=== PATIENT | female | born 1955 | race Caucasian/White ===

== ENCOUNTER 2019-03-23 18:56 | Inpatient (IN) | payer MEDICARE, BC ==
[~2019-03-23] VITALS: Ht 170.2 cm; Wt 100.0 kg
[2019-03-23 19:02] VITALS: Ht 170.2 cm; Wt 100.0 kg
--- NOTE | 2019-03-23 19:11 | ERD ---
ER Documentation Chief Complaint Chief Complaint bib ra from board and care for cp, given asa 324, and 2 nitro, HPI 64-year-old female brought in from her board and care via ambulance for chest pain that started around 1700. She was given 2 nitros, aspirin, and placed on oxygen with resolution of her pain. She states that she was having pain in her left chest that was sharp, intermittent, and this was going on for several hours . She did have associated shortness of breath. She denies vomiting or having any diaphoresis. Currently she feels much better and denies any chest pain. She denies any history of heart attacks. No recent fevers or chills. No cough. ROS All systems reviewed and are negative except as per history of present illness. Allergies Allergies: Coded Allergies: No Known Allergy (Unverified , 03/23/19) PMhx/Soc History of Surgery: Yes (Surgery for tubal ) Hx Neurological Disorder: Yes (Stroke with left-sided deficits) Hx Respiratory Disorders: Yes (COPD) Hx Cardiac Disorders: Yes (Hypertension) Hx Alcohol Use: No Hx Substance Use: No (History of drug use) Hx Tobacco Use: No (Quit) FmHx Family History: No diabetes Physical Exam Vitals Vital Signs Date Temp Pulse Resp B/P (MAP) Pulse Ox O2 O2 Flow FiO2 Time Delivery Rate 03/23/19 67 20 129/100 100 Nasal 2.0 19:17 (110) Cannula 03/23/19 Nasal 2 19:14 Cannula 03/23/19 98.7 65 19 129/102 100 19:02 (111) Physical Exam Const: No acute distress Head: Atraumatic Eyes: Normal Conjunctiva ENT: Normal External Ears, Nose and Mouth. Neck: Full range of motion. No meningismus. Resp: Clear to auscultation bilaterally Cardio: Regular rate and rhythm, no murmurs Abd: Soft, non tender, non distended. Normal bowel sounds Skin: No petechiae or rashes Back: No midline or flank tenderness Ext: No cyanosis, or edema Neur: Awake and alert Psych: Normal Mood and Affect Result Diagram: 03/23/19192203/23/191922 Results 24 hrs Laboratory Tests Test 03/23/19 19:23 White Blood Count 6.7 10^3/ul Red Blood Count 4.21 10^6/ul Hemoglobin 13.2 g/dl Hematocrit 41.7 % Mean Corpuscular Volume 99.0 fl Mean Corpuscular Hemoglobin 31.4 pg Mean Corpuscular Hemoglobin Concent 31.7 g/dl Red Cell Distribution Width 13.3 % Platelet Count 190 10^3/UL Mean Platelet Volume 9.1 fl Immature Granulocytes % 0.300 % Neutrophils % 57.5 % Lymphocytes % 30.4 % Monocytes % 8.3 % Eosinophils % 3.1 % Basophils % 0.4 % Nucleated Red Blood Cells % 0.0 /100WBC Immature Granulocytes # 0.020 10^3/ul Neutrophils # 3.9 10^3/ul Lymphocytes # 2.1 10^3/ul Monocytes # 0.6 10^3/ul Eosinophils # 0.2 10^3/ul Basophils # 0.0 10^3/ul Nucleated Red Blood Cells # 0.0 10^3/ul Sodium Level 142 mmol/L Potassium Level 5.3 mmol/L Chloride Level 103 mmol/L Carbon Dioxide Level 29 mmol/L Anion Gap 10 Blood Urea Nitrogen 62 mg/dl Creatinine 1.67 mg/dl Est Glomerular Filtrat Rate mL/min 31 mL/min Glucose Level 116 mg/dl Calcium Level 9.8 mg/dl Troponin I < 0.012 ng/ml Current Medications Medications Dose Sig/Teressa Start Time Status Last (Trade) Ordered Route PRN Stop Time Admin Dose Reason Admin Morphine 2 mg ONCE STAT 03/23/19 DC 03/23/19 Sulfate IV 22:52 23:00 (morphine) 03/23/19 22:56 Sodium 1,000 ml @ [id number] IV 03/23/19 DC 03/24/19 Chloride 80 mls/hr 22:52 00:55 03/24/19 01:03 Procedures/MDM EMERGENT LABS AND DIAGNOSTIC STUDIES: Lab Results above were reviewed and interpreted by me. CBC: no anemia or evidence of infection BMP: Elevation of BUN and creatinine, concerning for renal insufficiency with borderline hyperkalemia. no e/o clinically significant acidosis, alkalosis, diabetic ketoacidosis Troponin within normal limits, not indicative of cardiac ischemia 12-lead EKG #1 was interpreted by Amy Villagomez MD: Normal Sinus Rhythm with ventricular rate of 64 beats per minute Normal axis Normal intervals Diffuse minimal upsloping ST elevations, consistent with benign early repolarization. No acute ST or T wave changes suggestive of acute ischemia or STEMI. 12-lead EKG #2 was interpreted by Amy Villagomez MD: Normal Sinus Rhythm with ventricular rate of 61 beats per minute Normal axis Normal intervals Diffuse minimal upsloping ST elevations, consistent with benign early repolarization. No acute ST or T wave changes suggestive of acute ischemia or STEMI. Radiology Results as interpreted by Radiology below were reviewed by Payam Villagomez MD: Chest x-ray: No acute abnormalities Initial Nursing notes reviewed. Previous Medical Records requested via the Electronic Health Record. EMERGENCY DEPARTMENT COURSE / MEDICAL DECISION MAKING: Patients symptoms are concerning for a cardiac etiology. Other etiologies considered were PE, aortic dissection, pneumonia, pneumothorax, esophageal rupture. EKG showed no acute ischemia. Initial troponin negative. CXR grossly unremarkable. However patient has an intermediate risk of adverse events. Plan to admit for further evaluation. Further workup will be deferred to the inpatien t team. Accepting Care Team: Current data and ongoing care discussed. Time: Time of admission Primary Provider: Dr. Singh Consulting: Outstanding Data: none Departure Diagnosis: Primary Impression: Chest pain Chest pain type: unspecified Qualified Codes: R07.9 - Chest pain, unspecified Additional Impression: Renal insufficiency Condition: TA Gonzalez MD March 23, 2019 19:11
[2019-03-23] MEDS ORDERED: SOD CHLORIDE 0.9% 1,000 ML IV SCH (22:52)
[2019-03-23] MEDS ORDERED: morphine 2 MG INJ IV STA (22:52)
[2019-03-23] MEDS ORDERED: morphine 2 MG INJ ONE (22:57)
[2019-03-23] MEDS ORDERED: ACETAMINOPHEN 325 MG TAB PO PRN ×2 (23:00)
[2019-03-23] MEDS ORDERED: ONDANSETRON 4 MG INJ IV PRN (23:00)
[2019-03-23] MEDS ORDERED: NACL 0.9% 3 ML SYG IV SCH (23:00)
[2019-03-23] MEDS ORDERED: MIDAZOLAM 1 MG/ML 2 ML INJ IV STA (23:04)
[2019-03-23] MEDS ORDERED: FENTAnyl 50 MCG/ML VIAL IV STA (23:04)
[2019-03-23] MEDS ORDERED: MIDAZOLAM (DRIP) 50 mg/50 mL 50 ML IV ONE (23:30)
[2019-03-23] MEDS ORDERED: FENTAnyl (DRIP) 1000 mcg/100mL 100 ML IV ONE (23:30)
[2019-03-24] VITALS (11 sets, daily range): BP systolic 65–158; BP diastolic 56–86; PULSE 55–83; RESP 17–20
--- NOTE | 2019-03-24 01:00 | HP ---
Date/Time of Note Date/Time of Note DATE: 03/24/19 TIME: 00:59 Assessment/Plan VTE Prophylaxis SCD applied (from Nsg): Yes Pharmacological prophylaxis: NA/contraindicated Pharm contraindication: low risk/ambulating Lines/Catheters IV Catheter Type (from Nrsg): Saline Lock Assessment/Plan Hospital Course This is a 64-year-old female being admitted to the telemetry floor for: #1 chest pain: Rule out ACS versus secondary to CHF. Trend cardiac enzymes x3, the first that was negative. EKG appears nonischemic. Morphine/nitro for pain. Will check hemoglobin A1c, lipid panel, TSH. Will consult cardiology. Will check an echocardiogram. #2 Suspect newly diagnosed acute CHF exacerbation: Patient denies any history of heart failure. Patient does have an elevated BNP of approximately 1500. She does have pulmonary congestion on lung exam. Will provide Lasix 40 mg IV daily. Monitor urine output. Will check an echocardiogram. Delay initiation of NIK at the current time given patient's ANKIT. #3 acute versus acute on chronic kidney injury: Did not have a previous baseline creatinine. At present time patient does appear to volume overload. Will provide patient with IV diuresis with Lasix. Will consult nephrology Dr. Carlson. Will check microscopic UA, urinalysis. calcium is 5.3. Will monitor. #4 Hypertension: We will need to confirm patient's home medications, the cur rent time PRN hydralazine #5 history of CVA: With chronic facial droop and left-sided weakness. Will check lipid panel, will need to confirm patient's home medications. Otherwise will need to initiate on aspirin/statin if no contraindication. #6 COPD: We will check a baseline ABG, PRN nebs #7 DVT and GI prophylaxis: SCDs, no GI prophylaxis indicated Further treatment strategy will be implemented as per the clinical course. Result Diagram: 03/23/19192203/23/191922 Results 24hrs Laboratory Tests Test 03/23/19 19:23 White Blood Count 6.7 Red Blood Count 4.21 Hemoglobin 13.2 Hematocrit 41.7 Mean Corpuscular Volume 99.0 Mean Corpuscular Hemoglobin 31.4 Mean Corpuscular Hemoglobin Concent 31.7 L Red Cell Distribution Width 13.3 Platelet Count 190 Mean Platelet Volume 9.1 Immature Granulocytes % 0.300 Neutrophils % 57.5 Lymphocytes % 30.4 Monocytes % 8.3 Eosinophils % 3.1 Basophils % 0.4 Nucleated Red Blood Cells % 0.0 Immature Granulocytes # 0.020 Neutrophils # 3.9 Lymphocytes # 2.1 Monocytes # 0.6 Eosinophils # 0.2 Basophils # 0.0 Nucleated Red Blood Cells # 0.0 Sodium Level 142 Potassium Level 5.3 H Chloride Level 103 Carbon Dioxide Level 29 Anion Gap 10 Blood Urea Nitrogen 62 H Creatinine 1.67 H Est Glomerular Filtrat Rate mL/min 31 L Glucose Level 116 Calcium Level 9.8 Troponin I < 0.012 HPI/ROS Admit Date/Time Admit Date/Time March 23, 2019 at 22:54 Hx of Present Illness Chief complaint: Brought in from boarding care via ambulance for chest pain 64-year-old female brought in from her board and care via ambulance for chest pain that started around 1700. She was given 2 nitros, aspirin, and placed on oxygen with resolution of her pain. She states that she was having pain in her left chest that was sharp, intermittent, and this was going on for several hours. She did have associated shortness of breath. She denies vomiting or having any diaphoresis. She has a history of a stroke and has chronic left-sided weakness as well as facial droop. She does report shortness of breath. Allergies: NKDA Medications: See ASIF AUGSUT Const: As per HPI Eyes : No pain discharge or redness or change in visual acuity ENT: No pain, sore throat, congestion, congestion, dysphagia or discharge Respiratory: As per HPI Cardiovascular: As per HPI GI : no change in appetite, abdominal pain, nausea, vomiting, diarrhea, constipation, or change in the color his stool Genitourinary: No dysuria, hematuria, flank pain , discharge or CVA tenderness Musculoskeletal: No joint pain, back pain, neck pain, restricted range of motion in neck or joints Skin: No rash, bruising or hives Neuro: No headache, dizziness, syncope, seizure, focal weakness Endocrine: No polyuria, polydipsia, temperature intolerance Psych: No hallucination, depression, anxiety or suicidal ideation PMH/Family/Social Past Medical History CVA with left sided weakness, facial droop, copd, htn, Medications Current Medications Sodium Chloride 1,000 ml @ 80 mls/hr [id number] IV Last administered on 03/24/19at 00:55; Admin Dose 80 MLS/HR; Start 03/23/19 at 22:52; Stop 03/24/19 at 11:21 IV Flush (NS 3 ml) 3 ml PER PROTOCOL IV ; Start 03/23/19 at 23:00 Ondansetron HCl (Zofran Inj) 4 mg Q6H PRN IV NAUSEA/VOMITING; Start 03/23/19 at 23:00 Nitroglycerin (Nitroglycerin (Sl Tab) 0.4 Mg) 1 tab Q5M PRN SL .CHEST PAIN; Start 03/23/19 at 23:00 Acetaminophen (Tylenol Tab) 650 mg Q6H PRN PO .PAIN 1-3 OR TEMP; Start 03/23/19 at 23:00 Morphine Sulfate (morphine) 2 mg Q4H PRN IV .PAIN 7-10; Start 03/23/19 at 23:00 Docusate Sodium (Colace) 100 mg Q12H PRN PO .CONSTIPATION; Start 03/23/19 at 23:00 Bisacodyl (Dulcolax) 5 mg DAILY PRN PO .CONSTIPATION; Start 03/23/19 at 23:00 Coded Allergies: No Known Allergy (Unverified , 03/23/19) Past Surgical History tubal ligation Family History Significant Family History: no pertinent family hx Social History hx of drug use Smoking Status: Former smoker Exam/Review of Systems Vital Signs Vitals Vital Signs Date Temp Pulse Resp B/P (MAP) Pulse Ox O2 O2 Flow FiO2 Time Delivery Rate 03/24/19 61 22 130/59 100 Nasal 00:08 (82) Cannula 03/23/19 2.0 23:30 03/23/19 98.7 19:02 Exam Exam General: Patient is currently lying in bed in no acute distress, she does have left facial droop which is chronic. HEENT: Atraumatic, normocephalic. The pupils are equal, round and reactive. Extraocular motor are intact, left facial droop chronic Neck: Supple with full range of motion. No rigidity or meningismus Chest: Nontender Lungs: Coarse breath sounds bilaterally, rales crackles Heart: Normal S1-S2, Regular rhythm and rate. Questionable JVD Abdomen: Soft , nontender, nondistended , bowel sounds are present. No guarding no rebound tenderness , No masses or organomegaly. No costovertebral temporal angle mass Extremities: Normal to inspection, no edema no cyanosis Neurologic: Alert and awake, speech slightly muffled, left facial droop(chronic), left-sided weakness(chronic) Additional Comments PROCEDURE: Chest. CLINICAL INDICATION: Chest pain. TECHNIQUE: Single frontal view of the chest was obtained. COMPARISON: None. FINDINGS: The cardiac silhouette is enlarged. The aortic arch is calcified. There is mild pulmonary venous congestion. There are right upper lobe and left basilar infiltrates. There is no pneumothorax. IMPRESSION: Mild cardiomegaly and pulmonary venous congestion. Right upper lobe and left basilar infiltrates. Aortic atherosclerosis. .Danish Josue MD, MD Date Time Electronically viewed and signed by .Danish Josue MD, MD on 03/23/2019 19:48 .T/ CC: TA SCHULZ MD [phone] EKG Normal Sinus Rhythm with ventricular rate of 61 beats per minute Normal axis Normal intervals Diffuse minimal upsloping ST elevations, consistent with benign early repolarization. No acute ST or T wave changes suggestive of acute ischemia or STEMI. LAUREL HERRERA March 24, 2019 01:00
[2019-03-24] MEDS ORDERED: FUROSEMIDE 40 MG INJ IV ONE (01:30)
[2019-03-24] MEDS ORDERED: hydrALAzine 20 MG INJ IV PRN (09:00)
[2019-03-24] MEDS ORDERED: ALBUTEROL 0.083% (NEB) 2.5 MG/3 ML AMP HHN PRN (09:00)
[2019-03-24] MEDS: FUROSEMIDE 40 MG INJ IV SCH (09:32)
--- NOTE | 2019-03-24 15:07 | CONS ---
DATE OF ADMISSION: 03/23/2019 DATE OF CONSULTATION: 03/24/2019 TYPE OF CONSULTATION: Nephrology. REASON FOR CONSULTATION: Acute kidney injury. PHYSICIAN REQUESTING CONSULT: Dr. Herrera. HISTORY OF PRESENT ILLNESS: This is a 64-year-old female with a past medical history of CVA, a histo ry of COPD, history of hypertension who presents to [facility] Emergency Room with chest pain. The patient states her symptoms started on the previous evening when she started having chest pain. The patient was given 2 nitros, aspirin in the Emergency Room with improvement of pain. The patient is just described the pain from the left side of chest, sharp, intermittent. There was no nausea, vomiting, no hemoptysis, no hematochezia. In terms of patient's renal history, the patient denies any prior history of acute kidney injury. Th e patient denies any prior history of CKD. She denies rashes. She denies any frothy urine. Please note the patient is a limited historian. PAST MEDICAL HISTORY: History of chronic obstructive pulmonary disease, hypertension, history of CVA . PAST SURGICAL HISTORY: Tubal ligation. ALLERGIES: NONE. FAMILY HISTORY: No family history of kidney disease. SOCIAL HISTORY: Former smoker. OUTPATIENT MEDICATIONS: Reviewed. REVIEW OF SYSTEMS: A 14-point review of systems was conducted. Pertinent positives stated in HPI, o therwise negative. PHYSICAL EXAMINATION: VITAL SIGNS: Blood pressure 133/86, respiration 18, pulse 79, temperature 97.4. HEENT: Head is normocephalic. NECK: Supple. HEART: Regular rate. LUNGS: Show diminished breath sounds at the base. ABDOMEN: Soft, nontender to palpation without rebound or guarding. EXTREMITIES: Negative for clubbing, cyanosis. Trace edema. DERMATOLOGIC: No rashes. MUSCULOSKELETAL: No joint effusions. NEUROLOGIC: No change in exam. LABORATORY DATA: From 03/24/2019 been reviewed. ABG was reviewed. Chest x-ray was reviewed. ASSESSMENT AND PLAN: This is a 64-year-old female who presents with: 1. Renal failure, possible nonoliguric acute kidney injury versus chronic kidney disease. Other pos sibilities include nonoliguric acute kidney injury on top of chronic kidney disease. The patient's b aseline renal function unknown. Plan at this point is to do a full evaluation. Check UA with microa nalysis, check urine electrolytes and check a renal ultrasound to evaluate renal parenchyma. Would o therwise continue current treatment plan, supportive care, renally dose all meds, monitor renal funct ion closely on diuretic therapy. We will also try to obtain patient's previous renal panels to ascer tain underlying baseline creatinine. 2. Anemia. We will monitor hemoglobin and hematocrit levels. 3. Mineral bone disorder, monitor calcium and phosphorus levels. 4. Volume overload. Etiology may be secondary to congestive heart failure, possibly new onset. The patient has noted elevated BNP. Chest x-ray does show congestion. The patient was given diuretic t herapy, monitor closely. Follow up 2D echo. 5. Hypertension. Continue blood pressure regimen. Defer any NIK inhibitor or ARB in the setting of possible acute kidney injury. 6. History of cerebrovascular accident with left-sided weakness. Continue medical management. 7. Chronic obstructive pulmonary disease. Continue current treatment plan. 8. Gastrointestinal and deep vein thrombosis prophylaxis. Thank you, Dr. Herrera, for this interesting consult. It will be a pleasure to follow patient with gwendolyn corbett throughout the hospital course. Dictated By: BLAIR OVIEDO DO NR/NTS Conf#: [id number] DID#: [id number] CC: LAUREL HERRERA MD;*EndCC*
--- NOTE | 2019-03-24 17:20 | RADRPT ---
Echocardiogram Report Patient Name: MILDRED JACOBSONPatient ID: [id number] : 1955 (64y 1m)Study Date: 03/24/2019 9:05:43 AM Gender: FAccession #: [id number] Tech: Ernst Olmedo [facility] Location: [facility]- Ref.Physician: LAUREL HERRERA Height(Cm): BSA: Weight(Kg): Quality: AdequateOrder Physician: LAUREL HERRERA Account #: Procedures: Echocardiographic Report: Transthoracic echocardiogram with complete 2D, M-Mode, and doppler examination. Indications: Chest Pain. Measurements: 2D/M Mode Doppler Measurement Value Normal Range Measurement Value Normal Range LVIDd 2D 4.5 [ 3.8 - 5.2 ] cm AV Peak Jonel 1.6 [ 100.0 - 170.0 ] cm/sec LVIDs 2D 2.8 [ 2.2 - 3.5 ] cm AV Peak PG 11.0 [ 2.0 - 9.0 ] mmHg LVPWd 2D 1.7 [ 0.6 - 0.9 ] cm LVOT Peak Jonel 1.4 [ 70.0 - 110.0 ] cm/sec IVSd 2D 1.7 [ 0.6 - 0.9 ] cm LVOT Peak PG 8.0 [ 2.0 - 6.0 ] mmHg AoR Diam 2D 2.2 [ 2.3 - 3.1 ] cm MV E Peak Jonel 1.1 [ 60.0 - 130.0 ] cm/sec EDV 2D 90.5 [ 46.0 - 106.0 ] ml MV A Peak Jonel 0.8 [ 100.0 - 120.0 ] cm/sec ESV 2D 30.3 [ 14.0 - 42.0 ] ml MV E/A 1.4 [ 0.8 - 1.5 ] ratio EF 2D 66.5 [ 54.0 - 74.0 ] percent MV Decel Time 187 [ 104 - 258 ] msec LA Dimen 2D 3.6 [ 2.7 - 3.8 ] cm Lat E` Jonel 0.0 [ 10.0 - 15.0 ] cm/sec Lateral E/E` 25.3 [ 1.0 - 2.0 ] ratio MV E/A 1.4 [ 0.8 - 1.5 ] ratio TR Peak Jonel 2.7 [ 100.0 - 280.0 ] cm/sec TR Peak PG 30.0 mmHg RVSP 40.0 [ 10.0 - 36.0 ] mmHg Findings: Left Ventricle: Normal left ventricular systolic function. Normal left ventricular cavity size. Moderate concentric left ventricular hypertrophy. Ejection fraction is visually estimated at 65 %. Tissue Doppler/Mitral Doppler indices are consistent with impaired relaxation (Stage I diastolic dysfunction). Right Ventricle: Normal right ventricular size. Normal right ventricular systolic function. Left Atrium: The left atrium is normal in size. Right Atrium: The right atrium is normal in size. Mitral Valve: Mild mitral leaflet calcification. Mild mitral annular calcification. Mild to moderate mitral valve regurgitation. The regurgitation jet is eccentrically directed which may underestimate the severity of mitral regurgitation. Aortic Valve: No hemodynamically significant aortic stenosis by doppler. Aortic cusps appear mildly calcified. Mild to moderate aortic valve regurgitation. Tricuspid Valve: Normal appearance of the tricuspid valve. Estimated peak PA systolic pressure 40 mmHg. There is mild tricuspid regurgitation. Pericardium: Trivial to small pericardial effusion. Left pleural effusion seen. Aorta: Normal aortic root. IVC: Normal size and normal respiratory collapse consistent with normal right atrial pressure. Conclusions: Normal left ventricular systolic function. Normal left ventricular cavity size. Moderate concentric left ventricular hypertrophy. Ejection fraction is visually estimated at 65 %. Tissue Doppler/Mitral Doppler indices are consistent with impaired relaxation (Stage I diastolic dysfunction). The left atrium is normal in size. Mild mitral leaflet calcification. Mild mitral annular calcification. Mild to moderate mitral valve regurgitation. The regurgitation jet is eccentrically directed which may underestimate the severity of mitral regurgitation. No hemodynamically significant aortic stenosis by doppler. Aortic cusps appear mildly calcified. Mild to moderate aortic valve regurgitation. Normal appearance of the tricuspid valve. Estimated peak PA systolic pressure 40 mmHg. There is mild tricuspid regurgitation. Trivial to small pericardial effusion. Left pleural effusion seen. Electronically Signed By: Wiley Givens 2019-03-24 17:19:18 PDT
[2019-03-24] MEDS: morphine 2 MG INJ IV PRN ×2 (17:57→22:26)
[2019-03-24] MEDS: NITROGLYCERIN (SL) 0.4 MG TAB SL PRN ×2 (20:03→20:14)
--- NOTE | 2019-03-24 20:06 | CONS ---
Assessment/Plan Assessment/Plan Hospital Course (Demo Recall) 1. Chest pain appears to be reproducible and musculoskeletal in nature 2. History of CVA 3. Acute renal insufficiency 4. Hypertension 5. Rule out dyslipidemia 6. Small pericardial effusion 7. Aortic insufficiency Recommendation: Follow-up with renal recommendation We will start the patient aspirin given her history of CVA. Check lipid panel in the morning and if LDL is more than 70 he is to be started on statins as well Continue blood pressure control Troponin have been negative. We will repeat again tomorrow Pain management as per internal medicine Thank you for this referral. We will continue to follow along with you YANELIS BURTON MD [facility] Consultation Date/Type/Reason Admit Date/Time March 23, 2019 at 22:54 Date of Consultation: March 24, 2019 Type of Consult Cardiology Reason for Consultation CP Requesting Provider: LAUREL HERRERA Date/Time of Note DATE: 03/24/19 TIME: 20:01 Hx of Present Illness Interventional cardiology consultation note Chief complaint: Chest pain Reason for consult: Chest pain History of present illness: Thank you for this referral. History was from the patient review of the chart review of the old chart. This is a pleasant 64-year-old female with a past medical history of CVA, a history of COPD, history of hypertension who presents to [facility] Emergency Room with chest pain. The pain is left-sided. Intermittent on and off no exacerbation treatment factor but appears to be getting worse with touch. It is sharp and severe at times. Is poking. PAST MEDICAL HISTORY: History of chronic obstructive pulmonary disease, hypertension, history of CVA. PAST SURGICAL HISTORY: Tubal ligation. ALLERGIES: NONE. FAMILY HISTORY: No family history of early coronary artery disease SOCIAL HISTORY: Former smoker. Medications she does not remember Review of system: Patient denies all others except for above-mentioned Past Medical History Medications Current Medications IV Flush (NS 3 ml) 3 ml PER PROTOCOL IV ; Start 03/23/19 at 23:00 Ondansetron HCl (Zofran Inj) 4 mg Q6H PRN IV NAUSEA/VOMITING; Start 03/23/19 at 23:00 Nitroglycerin (Nitroglycerin (Sl Tab) 0.4 Mg) 1 tab Q5M PRN SL .CHEST PAIN; Start 03/23/19 at 23:00 Acetaminophen (Tylenol Tab) 650 mg Q6H PRN PO .PAIN 1-3 OR TEMP; Start 03/23/19 at 23:00 Morphine Sulfate (morphine) 2 mg Q4H PRN IV .PAIN 7-10 Last administered on 03/24/19at 17:57; Admin Dose 2 MG; Start 03/23/19 at 23:00 Docusate Sodium (Colace) 100 mg Q12H PRN PO .CONSTIPATION; Start 03/23/19 at 23:00 Bisacodyl (Dulcolax) 5 mg DAILY PRN PO .CONSTIPATION; Start 03/23/19 at 23:00 Furosemide (Lasix) 40 mg DAILY IV Last administered on 03/24/19at 09:32; Admin Dose 40 MG; Start 03/24/19 at 09:00 Hydralazine HCl (Apresoline) 10 mg Q4H PRN IV ELEVATED BLOOD PRESSURE; Start 03/24/19 at 09:00 Albuterol (Proventil 0.083% (Neb)) 2.5 mg Q4H RESP THERAPY PRN HHN SHORTNESS OF BREATH; Start 03/24/19 at 09:00 Allergies: Coded Allergies: No Known Allergy (Unverified , 03/23/19) Social History Smoking Status: Former smoker Exam/Review of Systems Vital Signs Vitals Vital Signs Date Temp Pulse Resp B/P (MAP) Pulse Ox O2 O2 Flow FiO2 Time Delivery Rate 03/24/19 73 16:01 03/24/19 97.8 17 141/65 93 15:07 (90) 03/24/19 Nasal 2.0 09:36 Cannula Intake and Output 03/23/19 03/23/19 03/24/19 1515:00 23:00 07:00 IntakeIntake Total 300 ml BalanceBalance 300 ml Exam Exam General: Obese female in no acute distress HEENT: NC/AT. Left eye ptosis NECK: no stridor. CV: RRR. systolic and diastolic murmur; no gallop or rubs. PULM: no wheezing or rhonchi. Chest: Positive reproducible chest wall tenderness on the left side, mimicking her presenting pain GI: SOFT, NT, ND, no rebound or guarding Extremity: trace B/L LE edema. no clubbing. neuro: awake and alert, o. Left-sided weakness Psych: calm and pleasant rectal: deferred : normal EKG shows sinus rhythm with early repolarization abnormalities Echocardiogram shows: Normal left ventricular systolic function. Normal left ventricular cavity size. Moderate concentric left ventricular hypertrophy. Ejection fraction is visually estimated at 65 %. Tissue Doppler/Mitral Doppler indices are consistent with impaired relaxation (Stage I diastolic dysfunction). The left atrium is normal in size. Mild mitral leaflet calcification. Mild mitral annular calcification. Mild to moderate mitral valve regurgitation. The regurgitation jet is eccentrically directed which may underestimate the severity of mitral regurgitation. No hemodynamically significant aortic stenosis by doppler. Aortic cusps appear mildly calcified. Mild to moderate aortic valve regurgitation. Normal appearance of the tricuspid valve. Estimated peak PA systolic pressure 40 mmHg. There is mild tricuspid regurgitation. Trivial to small pericardial effusion. Left pleural effusion seen. Labs Result Diagram: 03/24/19 0422 03/24/19 0422 Results 24hrs Laboratory Tests Test 03/24/19 01:37 03/24/19 04:22 03/24/19 07:55 03/24/19 08:30 Creatine Kinase 23 < 20 L Creatine Kinase 1.9 Index Creatinine 0.43 0.39 Kinase MB (Mass) Troponin I < 0.012 < 0.012 B-Type 1530 H Natriuretic Peptide White Blood 6.3 Count Red Blood Count 3.68 L Hemoglobin 11.7 L Hematocrit 36.5 L Mean Corpuscular 99.2 Volume Mean Corpuscular 31.8 Hemoglobin Mean Corpuscular 32.1 Hemoglobin Lorraine nt Red Cell 13.4 Distribution Width Platelet Count 178 Mean Platelet 9.1 Volume Immature 0.300 Granulocytes % Neutrophils % 53.1 Lymphocytes % 30.3 Monocytes % 12.7 H Eosinophils % 3.3 Basophils % 0.3 Nucleated Red 0.0 Blood Cells % Immature 0.020 Granulocytes # Neutrophils # 3.4 Lymphocytes # 1.9 Monocytes # 0.8 Eosinophils # 0.2 Basophils # 0.0 Nucleated Red 0.0 Blood Cells # Sodium Level 143 Potassium Level 5.0 Chloride Level 106 Carbon Dioxide 29 Level Anion Gap 8 Blood Urea 60 H Nitrogen Creatinine 1.57 H Est Glomerular 33 L Filtrat Rate mL/min Glucose Level 100 Hemoglobin A1c 5.4 Calcium Level 9.2 Magnesium Level 2.2 Total Bilirubin 0.3 Direct Bilirubin 0.00 Indirect 0.3 Bilirubin Aspartate Amino < 8 L Transf (AST/SGOT ) Alanine 11 L Aminotransferase (ALT/SGPT) Alkaline 97 Phosphatase Total Protein 6.9 Albumin 3.4 Globulin 3.50 H Albumin/Globulin 0.97 Ratio Thyroid 2.360 Stimulating Hormone (TSH) Blood Gas Blood arterial Specimen Source Arterial Blood 03/24/2019 12:00 Date Drawn :54 PM Arterial Blood 7.402 pH (Temp corrected) Arterial Blood 47.7 H pCO2 (Temp correct) Arterial Blood 62.2 L pO2 (Temp corrected) Arterial Blood 29.0 H HCO3 Arterial Blood 3.5 H Base Excess Arterial Blood 91.2 L Oxygen Saturatio n Evan Test ACCEPTAB Arterial Blood Right Radial Gas Puncture Site Arterial 0.4 Blood Carboxyhem oglobin Arterial Blood 0.1 Methemoglobin Blood Gas A-a O2 30.4 H Differential Oxyhemoglobin 90.7 L Percent Blood Gas 37.0 Temperature Blood Gas ROOM AIR Modality FiO2 21.0 Blood Gas CW Notified Whom Blood Gas 03/24/2019 12:08 Notified Time :46 PM Test 03/24/19 13:49 Urine Color STRAW Urine Clarity SLIGHTLY CLOUDY A Urine pH 5.0 Urine Specific 1.010 [place] Urine Ketones NEGATIVE Urine Nitrite NEGATIVE Urine Bilirubin NEGATIVE Urine NEGATIVE Urobilinogen Urine Leukocyte 2+ H Esterase Urine 6 H Microscopic RBC Urine 78 H Microscopic WBC Urine Squamous FEW Epithelial Cells Urine Bacteria FEW A Urine Hemoglobin NEGATIVE Urine Random 45.43 Creatinine Urine Random 110 H Sodium Urine Glucose NEGATIVE Urine Total 58.0 H Protein Medications Medications Current Medications IV Flush (NS 3 ml) 3 ml PER PROTOCOL IV ; Start 03/23/19 at 23:00 Ondansetron HCl (Zofran Inj) 4 mg Q6H PRN IV NAUSEA/VOMITING; Start 03/23/19 at 23:00 Nitroglycerin (Nitroglycerin (Sl Tab) 0.4 Mg) 1 tab Q5M PRN SL .CHEST PAIN; Start 03/23/19 at 23:00 Acetaminophen (Tylenol Tab) 650 mg Q6H PRN PO .PAIN 1-3 OR TEMP; Start 03/23/19 at 23:00 Morphine Sulfate (morphine) 2 mg Q4H PRN IV .PAIN 7-10 Last administered on 03/24/19at 17:57; Admin Dose 2 MG; Start 03/23/19 at 23:00 Docusate Sodium (Colace) 100 mg Q12H PRN PO .CONSTIPATION; Start 03/23/19 at 23:00 Bisacodyl (Dulcolax) 5 mg DAILY PRN PO .CONSTIPATION; Start 03/23/19 at 23:00 Furosemide (Lasix) 40 mg DAILY IV Last administered on 03/24/19at 09:32; Admin Dose 40 MG; Start 03/24/19 at 09:00 Hydralazine HCl (Apresoline) 10 mg Q4H PRN IV ELEVATED BLOOD PRESSURE; Start 03/24/19 at 09:00 Albuterol (Proventil 0.083% (Neb)) 2.5 mg Q4H RESP THERAPY PRN HHN SHORTNESS OF BREATH; Start 03/24/19 at 09:00 YANELIS BURTON MD March 24, 2019 20:06
[2019-03-24] MEDS: ASPIRIN (EC) 81 MG TAB PO SCH (21:00)
[2019-03-25] VITALS (11 sets, daily range): BP systolic 127–159; BP diastolic 63–72; PULSE 59–82; RESP 16–20
[2019-03-25] MEDS: morphine 2 MG INJ IV PRN ×3 (03:17→20:39)
[2019-03-25] MEDS: ASPIRIN (EC) 81 MG TAB PO SCH (08:04)
[2019-03-25] MEDS: FUROSEMIDE 40 MG INJ IV SCH (08:05)
--- NOTE | 2019-03-25 09:26 | PN ---
DATE: 03/25/2019 SUBJECTIVE: The patient is stable, no events overnight. No fevers, chills, nausea or vomiting. OBJECTIVE: VITAL SIGNS: Blood pressure is 134/63, respirations 17, pulse 59, temperature 97.6. HEENT: Head is normocephalic. NECK: Supple. HEART: Regular rate. LUNGS: Show diminished breath sounds at the base. ABDOMEN: Soft, nontender to palpation without rebound or guarding. EXTREMITIES: Negative for clubbing, cyanosis, no edema. DERMATOLOGIC: No rashes. MUSCULOSKELETAL: No joint effusion. NEUROLOGIC: No change in exam. MEDICATIONS: Reviewed. LABORATORY DATA: Reviewed. IMAGING STUDIES: Renal ultrasound was reviewed. ASSESSMENT AND PLAN: 1. Nonoliguric acute kidney injury on top of chronic kidney disease with history of left nephrectomy . Etiology of current acute kidney injury is likely secondary to hemodynamics. The patient's baseli ne creatinine is unknown. Renal function has continued to decline in the last 24 hours. At this poi nt, continue current treatment plan, supportive care, renally dose all medications. We will consider deescalating diuretic therapy. 2. Chronic kidney disease with history of left nephrectomy. The patient's baseline renal function i s unknown. The patient is currently in acute kidney injury as stated above. Continue current treatm ent plan, supportive care, renally dose all medications. 3. Anemia. Continue to monitor hemoglobin and hematocrit levels. 4. Mineral bone disorder, monitor calcium and phosphorus levels. 5. Volume overload, improved. The patient's 2D echo was reviewed, showed preserved ejection fractio n. Continue to monitor. We will deescalate diuretic therapy. 6. Hypertension. Continue current blood pressure regimen. Defer any NIK or ARB at this time. 7. History of cerebrovascular accident with left-sided hemiparesis. Continue medical management. 8. History of chronic obstructive pulmonary disease. Continue current treatment plan. 9. Gastrointestinal and deep vein thrombosis prophylaxis. Dictated By: BLAIR OVIEDO DO NR/NTS Conf#: [id number] DID#: [id number] CC: YANELIS BURTON MD; LAUREL HERRERA MD; EDWARD SCHNEIDER MD;*EndCC*
--- NOTE | 2019-03-25 10:38 | EN ---
Date/Time of Note Date/Time of Note DATE: 03/24/19 TIME: 14:27 Event Note Medicine Medicine Event Note PROGRESS NOTE DATE OF SERVICE: 03/24/19 SUBJECTIVE: no new complaints, when asked about chest pain, states she's till having it OBJECTIVE: 97.4 / 79 / 18 / 133/86 / 98% on 2L General: lethargic, obese, was being cleaned HEENT: NC/ AT. L eye ptosis Neck: supple CVS: S1, S2, RRR. no murmurs. pain on chest wall palpation Lungs: diminished Abd: soft, obese, nontender, +BS Ext: L sided weakness LABS AND IMAGING: reviewed Echo : pending ASSESSMENT / PLAN: 64 yo F sent for SNF for evaluation of CP managed as follows : #1 chest pain: - ACS ruled out, seeems more LORETA in origin, may also be 2.2 to CHF. -f/u echo findings -cardio also consulted, await review -supportive care #2 Possible CHF exacerbation: -continue diuresis, f/u echo -wean O2 as tolerated #3 acute versus acute on chronic kidney injury: -Nephro review and recs noted, appreciate input -UA still pending -trend labs #4 Hypertension: -good control at current time, adjust meds and titrate as indicated #5 history of CVA: With chronic facial droop and left-sided weakness. -asa / statin #6 COPD:Patient has a history of this condition. No acute issues so far on this admission. 7. Possible PNA: CXR suggestive of bilateral infiltrates, Pna vs CHF? -consider abx EDWARD SCHNEIDER March 25, 2019 10:38
--- NOTE | 2019-03-25 10:39 | PN ---
Date/Time of Note Date/Time of Note DATE: 03/25/19 TIME: 10:38 Assessment/Plan VTE Prophylaxis Risk score (from Ns)>0 risk: 6 SCD applied (from Ns): Yes Pharmacological prophylaxis: heparin Lines/Catheters IV Catheter Type (from Nrs): Saline Lock Urinary Cath still in place: No Assessment/Plan Hospital Course SUBJECTIVE: doesn't seem to be in any discomfort, no new complaints OBJECTIVE: HEENT: NC/ AT. L eye ptosis, facial droop Neck: supple CVS: S1, S2, RRR. no murmurs. pain on chest wall palpation Lungs: diminished Abd: soft, obese, nontender, +BS Ext: left sided weakness ASSESSMENT / PLAN: 64 yo F sent for SNF for evaluation of CP managed as follows : Chest pain: - likely LORETA, ACS ruled out / supportive care and pain control CHF exacerbation: -Acute / new diagnosis / diastolic with preserved EF 65% -echo also shows Mild to Moderate mitral and aortic valve regurgitation / trivial pericardial effusion / Normal LV function Bilateral Pneumonia -?aspiration / ST eval / empiric abx / blood cultures UTI: -send urine cultures -empiric abx acute versus acute on chronic kidney injury + hx of L Nephrectomy: -Nephro review and recs noted, appreciate input -Cr went up today, baseline still unclear / diuretics have been de-escalated Hypertension: -good control at current time, adjust meds and titrate as indicated 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 -asa / statin Dyslipidemia -statin COPD:Patient has a history of this condition. No acute issues so far on this admission. Dispo: -continue to observe inhouse for now -f/u final cultures -follow renal function -possible d/c back to SNF tomorrow on abx if indices improve Result Diagram: 03/25/19 0508 03/25/19 0508 Results 24hrs Laboratory Tests Test 03/24/19 13:49 03/25/19 05:08 Urine Color STRAW Urine Clarity SLIGHTLY CLOUDY A Urine pH 5.0 Urine Specific [place] 1.010 Urine Ketones NEGATIVE Urine Nitrite NEGATIVE Urine Bilirubin NEGATIVE Urine Urobilinogen NEGATIVE Urine Leukocyte Esterase 2+ H Urine Microscopic RBC 6 H Urine Microscopic WBC 78 H Urine Squamous Epithelial Cells FEW Urine Bacteria FEW A Urine Hemoglobin NEGATIVE Urine Random Creatinine 45.43 Urine Random Sodium 110 H Urine Glucose NEGATIVE Urine Total Protein 58.0 H White Blood Count 6.1 Red Blood Count 3.66 L Hemoglobin 11.5 L Hematocrit 36.2 L Mean Corpuscular Volume 98.9 Mean Corpuscular Hemoglobin 31.4 Mean Corpuscular Hemoglobin Concent 31.8 L Red Cell Distribution Width 13.3 Platelet Count 190 Mean Platelet Volume 9.2 Immature Granulocytes % 0.200 Neutrophils % 53.6 Lymphocytes % 32.8 Monocytes % 10.5 Eosinophils % 2.6 Basophils % 0.3 Nucleated Red Blood Cells % 0.0 Immature Granulocytes # 0.010 Neutrophils # 3.3 Lymphocytes # 2.0 Monocytes # 0.6 Eosinophils # 0.2 Basophils # 0.0 Nucleated Red Blood Cells # 0.0 Sodium Level 142 Potassium Level 4.7 Chloride Level 104 Carbon Dioxide Level 29 Anion Gap 9 Blood Urea Nitrogen 61 H Creatinine 1.73 H Est Glomerular Filtrat Rate mL/min 30 L Glucose Level 98 Calcium Level 8.7 Phosphorus Level 5.3 H Magnesium Level 2.1 Total Bilirubin 0.3 Direct Bilirubin 0.00 Indirect Bilirubin 0.3 Aspartate Amino Transf (AST/SGOT) < 8 L Alanine Aminotransferase (ALT/SGPT) 13 Alkaline Phosphatase 107 B-Type Natriuretic Peptide 850 H Total Protein 7.3 Albumin 3.5 Globulin 3.80 H Albumin/Globulin Ratio 0.92 Triglycerides Level 338 H Cholesterol Level 204 H LDL Cholesterol, Calculated 97 HDL Cholesterol 39 Cholesterol/HDL Ratio 5.2 Exam/Review of Systems Exam Vitals Vital Signs Date Temp Pulse Resp B/P (MAP) Pulse Ox O2 O2 Flow FiO2 Time Delivery Rate 03/25/19 Nasal 2.0 08:10 Cannula 03/25/19 78 08:01 03/25/19 97.6 17 134/63 95 07:17 (86) Intake and Output 03/24/19 03/24/19 03/25/19 1515:00 23:00 07:00 IntakeIntake Total 1100 ml 500 ml BalanceBalance 1100 ml 500 ml Results Results 24hrs Laboratory Tests Test 03/24/19 13:49 03/25/19 05:08 Urine Color STRAW Urine Clarity SLIGHTLY CLOUDY A Urine pH 5.0 Urine Specific [place] 1.010 Urine Ketones NEGATIVE Urine Nitrite NEGATIVE Urine Bilirubin NEGATIVE Urine Urobilinogen NEGATIVE Urine Leukocyte Esterase 2+ H Urine Microscopic RBC 6 H Urine Microscopic WBC 78 H Urine Squamous Epithelial Cells FEW Urine Bacteria FEW A Urine Hemoglobin NEGATIVE Urine Random Creatinine 45.43 Urine Random Sodium 110 H Urine Glucose NEGATIVE Urine Total Protein 58.0 H White Blood Count 6.1 Red Blood Count 3.66 L Hemoglobin 11.5 L Hematocrit 36.2 L Mean Corpuscular Volume 98.9 Mean Corpuscular Hemoglobin 31.4 Mean Corpuscular Hemoglobin Concent 31.8 L Red Cell Distribution Width 13.3 Platelet Count 190 Mean Platelet Volume 9.2 Immature Granulocytes % 0.200 Neutrophils % 53.6 Lymphocytes % 32.8 Monocytes % 10.5 Eosinophils % 2.6 Basophils % 0.3 Nucleated Red Blood Cells % 0.0 Immature Granulocytes # 0.010 Neutrophils # 3.3 Lymphocytes # 2.0 Monocytes # 0.6 Eosinophils # 0.2 Basophils # 0.0 Nucleated Red Blood Cells # 0.0 Sodium Level 142 Potassium Level 4.7 Chloride Level 104 Carbon Dioxide Level 29 Anion Gap 9 Blood Urea Nitrogen 61 H Creatinine 1.73 H Est Glomerular Filtrat Rate mL/min 30 L Glucose Level 98 Calcium Level 8.7 Phosphorus Level 5.3 H Magnesium Level 2.1 Total Bilirubin 0.3 Direct Bilirubin 0.00 Indirect Bilirubin 0.3 Aspartate Amino Transf (AST/SGOT) < 8 L Alanine Aminotransferase (ALT/SGPT) 13 Alkaline Phosphatase 107 B-Type Natriuretic Peptide 850 H Total Protein 7.3 Albumin 3.5 Globulin 3.80 H Albumin/Globulin Ratio 0.92 Triglycerides Level 338 H Cholesterol Level 204 H LDL Cholesterol, Calculated 97 HDL Cholesterol 39 Cholesterol/HDL Ratio 5.2 Medications Medication Current Medications IV Flush (NS 3 ml) 3 ml PER PROTOCOL IV ; Start 03/23/19 at 23:00 Ondansetron HCl (Zofran Inj) 4 mg Q6H PRN IV NAUSEA/VOMITING; Start 03/23/19 at 23:00 Nitroglycerin (Nitroglycerin (Sl Tab) 0.4 Mg) 1 tab Q5M PRN SL .CHEST PAIN Last administered on 03/24/19at 20:14; Admin Dose 1 TAB; Start 03/23/19 at 23:00 Acetaminophen (Tylenol Tab) 650 mg Q6H PRN PO .PAIN 1-3 OR TEMP; Start 03/23/19 at 23:00 Morphine Sulfate (morphine) 2 mg Q4H PRN IV .PAIN 7-10 Last administered on 03/25/19at 03:17; Admin Dose 2 MG; Start 03/23/19 at 23:00 Docusate Sodium (Colace) 100 mg Q12H PRN PO .CONSTIPATION; Start 03/23/19 at 23:00 Bisacodyl (Dulcolax) 5 mg DAILY PRN PO .CONSTIPATION; Start 03/23/19 at 23:00 Hydralazine HCl (Apresoline) 10 mg Q4H PRN IV ELEVATED BLOOD PRESSURE; Start 03/24/19 at 09:00 Albuterol (Proventil 0.083% (Neb)) 2.5 mg Q4H RESP THERAPY PRN HHN SHORTNESS OF BREATH; Start 03/24/19 at 09:00 Aspirin (Halfprin) 81 mg DAILY PO Last administered on 03/25/19at 08:04; Admin Dose 81 MG; Start 03/24/19 at 20:00 Furosemide (Lasix) 20 mg DAILY PO ; Start 03/26/19 at 09:00 EDWARD SCHNEIDER March 25, 2019 10:39
[2019-03-25] MEDS ORDERED: CEFEPIME 1GM/50 ML (PMX) 50 ML IVPB SCH (11:00)
[2019-03-25] MEDS: HEPARIN 5,000 UNIT/1 ML VIAL SC SCH ×2 (11:44→20:48)
--- NOTE | 2019-03-25 12:30 | CONS ---
Consult Date/Type/Reason Admit Date/Time March 25, 2019 at 08:00 Initial Consult Date 03/24/19 Type of Consultation: cv Requesting Provider: LAUREL HERRERA Date/Time of Note DATE: 03/25/19 TIME: 12:27 Subjective Interventional cardiology follow-up progress note Subjective: Discussed with the staff and telemetry was reviewed. Patient has remained in sinus rhythm. Patient with no more chest pain or pressure now. Ejective: General: Obese female in no acute distress HEENT: NC/AT. Left eye ptosis NECK: no stridor. CV: RRR. systolic and diastolic murmur; no gallop or rubs. PULM: no wheezing or rhonchi. Chest: Minimal reproducible chest wall tenderness on the left side, GI: SOFT, NT, ND, no rebound or guarding Extremity: trace B/L LE edema. no clubbing. neuro: awake and alert, oriented. Left-sided weakness Psych: calm and pleasant rectal: deferred : normal EKG shows sinus rhythm with early repolarization abnormalities Echocardiogram shows: Normal left ventricular systolic function. Normal left ventricular cavity size. Moderate concentric left ventricular hypertrophy. Ejection fraction is visually estimated at 65 %. Tissue Doppler/Mitral Doppler indices are consistent with impaired relaxation (Stage I diastolic dysfunction). The left atrium is normal in size. Mild mitral leaflet calcification. Mild mitral annular calcification. Mild to moderate mitral valve regurgitation. The regurgitation jet is eccentrically directed which may underestimate the severity of mitral regurgitation. No hemodynamically significant aortic stenosis by doppler. Aortic cusps appear mildly calcified. Mild to moderate aortic valve regurgitation. Normal appearance of the tricuspid valve. Estimated peak PA systolic pressure 40 mmHg. There is mild tricuspid regurgitation. Trivial to small pericardial effusion. Left pleural effusion seen. Objective Vitals Vital Signs Date Temp Pulse Resp B/P (MAP) Pulse Ox O2 O2 Flow FiO2 Time Delivery Rate 03/25/19 98.0 80 16 134/71 96 11:35 (92) 03/25/19 Nasal 2.0 08:10 Cannula Intake and Output 03/24/19 03/24/19 03/25/19 1515:00 23:00 07:00 IntakeIntake Total 1100 ml 500 ml BalanceBalance 1100 ml 500 ml Results/Medications Result Diagram: 03/25/19 0504 03/25/19 0508 Results 24 hrs Laboratory Tests Test 03/24/19 13:49 03/25/19 05:08 Urine Color STRAW Urine Clarity SLIGHTLY CLOUDY A Urine pH 5.0 Urine Specific Simpson 1.010 Urine Ketones NEGATIVE Urine Nitrite NEGATIVE Urine Bilirubin NEGATIVE Urine Urobilinogen NEGATIVE Urine Leukocyte Esterase 2+ H Urine Microscopic RBC 6 H Urine Microscopic WBC 78 H Urine Squamous Epithelial Cells FEW Urine Bacteria FEW A Urine Hemoglobin NEGATIVE Urine Random Creatinine 45.43 Urine Random Sodium 110 H Urine Glucose NEGATIVE Urine Total Protein 58.0 H White Blood Count 6.1 Red Blood Count 3.66 L Hemoglobin 11.5 L Hematocrit 36.2 L Mean Corpuscular Volume 98.9 Mean Corpuscular Hemoglobin 31.4 Mean Corpuscular Hemoglobin Concent 31.8 L Red Cell Distribution Width 13.3 Platelet Count 190 Mean Platelet Volume 9.2 Immature Granulocytes % 0.200 Neutrophils % 53.6 Lymphocytes % 32.8 Monocytes % 10.5 Eosinophils % 2.6 Basophils % 0.3 Nucleated Red Blood Cells % 0.0 Immature Granulocytes # 0.010 Neutrophils # 3.3 Lymphocytes # 2.0 Monocytes # 0.6 Eosinophils # 0.2 Basophils # 0.0 Nucleated Red Blood Cells # 0.0 Sodium Level 142 Potassium Level 4.7 Chloride Level 104 Carbon Dioxide Level 29 Anion Gap 9 Blood Urea Nitrogen 61 H Creatinine 1.73 H Est Glomerular Filtrat Rate mL/min 30 L Glucose Level 98 Calcium Level 8.7 Phosphorus Level 5.3 H Magnesium Level 2.1 Total Bilirubin 0.3 Direct Bilirubin 0.00 Indirect Bilirubin 0.3 Aspartate Amino Transf (AST/SGOT) < 8 L Alanine Aminotransferase (ALT/SGPT) 13 Alkaline Phosphatase 107 B-Type Natriuretic Peptide 850 H Total Protein 7.3 Albumin 3.5 Globulin 3.80 H Albumin/Globulin Ratio 0.92 Triglycerides Level 338 H Cholesterol Level 204 H LDL Cholesterol, Calculated 97 HDL Cholesterol 39 Cholesterol/HDL Ratio 5.2 Medications Current Medications IV Flush (NS 3 ml) 3 ml PER PROTOCOL IV ; Start 03/23/19 at 23:00 Ondansetron HCl (Zofran Inj) 4 mg Q6H PRN IV NAUSEA/VOMITING; Start 03/23/19 at 23:00 Acetaminophen (Tylenol Tab) 650 mg Q6H PRN PO .PAIN 1-3 OR TEMP; Start 03/23/19 at 23:00 Morphine Sulfate (morphine) 2 mg Q4H PRN IV .PAIN 7-10 Last administered on 03/25/19at 03:17; Admin Dose 2 MG; Start 03/23/19 at 23:00 Docusate Sodium (Colace) 100 mg Q12H PRN PO .CONSTIPATION; Start 03/23/19 at 23:00 Bisacodyl (Dulcolax) 5 mg DAILY PRN PO .CONSTIPATION; Start 03/23/19 at 23:00 Hydralazine HCl (Apresoline) 10 mg Q4H PRN IV ELEVATED BLOOD PRESSURE; Start 03/24/19 at 09:00 Albuterol (Proventil 0.083% (Neb)) 2.5 mg Q4H RESP THERAPY PRN HHN SHORTNESS OF BREATH; Start 03/24/19 at 09:00 Aspirin (Halfprin) 81 mg DAILY PO Last administered on 03/25/19at 08:04; Admin Dose 81 MG; Start 03/24/19 at 20:00 Furosemide (Lasix) 20 mg DAILY PO ; Start 03/26/19 at 09:00 Heparin Sodium (Porcine) (Heparin (5000 Units/1ml)) 5,000 unit BID SC Last administered on 03/25/19at 11:44; Admin Dose 5,000 UNIT; Start 03/25/19 at 11:00 Cefepime HCl 50 ml @ 100 mls/hr Q12 IVPB ; Start 03/25/19 at 11:00 Atorvastatin Calcium (Lipitor) 20 mg HS PO ; Start 03/25/19 at 21:00 Acetaminophen/ Hydrocodone Bitart ([place] (5/325)) 1 tab Q6H PRN PO MODERATE PAIN LEVEL 4-6; Start 03/25/19 at 11:00 Assessment/Plan Hospital Course (Demo Recall) 1. Chest pain appears to be reproducible and musculoskeletal in nature. Currently has resolved 2. History of CVA 3. Acute renal insufficiency 4. Hypertension 5. Rule out dyslipidemia 6. Small pericardial effusion 7. Aortic insufficiency Recommendation: Follow-up with renal recommendation Continue with aspirin given her history of CVA. start lipitor to keep LDL < 70 Continue blood pressure control Troponin have been negative. Pain management as per internal medicine Thank you for this referral. We will continue to follow along with you YANELIS BURTON MD [facility] YANELIS BURTON MD March 25, 2019 12:30
[2019-03-25] MEDS: DOCUSATE SODIUM 100 MG CAP PO PRN (17:03)
[2019-03-25] MEDS: ATORVASTATIN 20 MG TAB PO SCH (20:39)
[2019-03-25] MEDS: BISACODYL (EC) 5 MG TAB PO PRN (20:53)
[2019-03-25] MEDS ORDERED: ATORVASTATIN 20 MG TAB PO SCH (21:00)
[2019-03-25] MEDS: HYDROCODONE/APAP (5/325) TAB PO PRN (23:38)
[2019-03-26] VITALS (10 sets, daily range): BP systolic 139–188; BP diastolic 69–95; PULSE 66–112; RESP 16–20
[2019-03-26] MEDS: morphine 2 MG INJ IV PRN ×5 (00:35→21:29)
[2019-03-26] MEDS: ASPIRIN (EC) 81 MG TAB PO SCH (08:31)
[2019-03-26] MEDS: FUROSEMIDE 20 MG TAB PO SCH (08:31)
[2019-03-26] MEDS: HEPARIN 5,000 UNIT/1 ML VIAL SC SCH ×2 (08:33→21:35)
--- NOTE | 2019-03-26 08:38 | CONS ---
Consult Date/Type/Reason Admit Date/Time March 25, 2019 at 08:00 Initial Consult Date 03/24/19 Type of Consultation: cv Requesting Provider: LAUREL HERRERA Date/Time of Note DATE: 03/26/19 TIME: 08:37 Subjective Interventional cardiology follow-up progress note Subjective: Discussed with the staff and telemetry was reviewed. Patient has remained in sinus rhythm. Patient with no more chest pain or pressure now. She wants to go home now No palpitations Ejective: General: Obese female in no acute distress HEENT: NC/AT. Left eye ptosis NECK: no stridor. CV: RRR. systolic and diastolic murmur; no gallop or rubs. PULM: no wheezing or rhonchi. Chest: No more chest wall tenderness GI: SOFT, NT, ND, no rebound or guarding Extremity: trace B/L LE edema. no clubbing. neuro: awake and alert, oriented. Left-sided weakness Psych: calm and pleasant rectal: deferred : normal EKG shows sinus rhythm with early repolarization abnormalities Echocardiogram shows: Normal left ventricular systolic function. Normal left ventricular cavity size. Moderate concentric left ventricular hypertrophy. Ejection fraction is visually estimated at 65 %. Tissue Doppler/Mitral Doppler indices are consistent with impaired relaxation (Stage I diastolic dysfunction). The left atrium is normal in size. Mild mitral leaflet calcification. Mild mitral annular calcification. Mild to moderate mitral valve regurgitation. The regurgitation jet is eccentrically directed which may underestimate the severity of mitral regurgitation. No hemodynamically significant aortic stenosis by doppler. Aortic cusps appear mildly calcified. Mild to moderate aortic valve regurgitation. Normal appearance of the tricuspid valve. Estimated peak PA systolic pressure 40 mmHg. There is mild tricuspid regurgitation. Trivial to small pericardial effusion. Left pleural effusion seen. Objective Vitals Vital Signs Date Temp Pulse Resp B/P (MAP) Pulse Ox O2 O2 Flow FiO2 Time Delivery Rate 03/26/19 97.8 93 17 149/77 93 07:24 (101) 03/26/19 Nasal 2.0 03:39 Cannula Intake and Output 03/25/19 03/25/19 03/26/19 1515:00 23:00 07:00 IntakeIntake Total 500 ml 600 ml BalanceBalance 500 ml 600 ml Results/Medications Result Diagram: 03/25/19 0508 03/26/19 0535 Results 24 hrs Laboratory Tests Test 03/26/19 05:35 Sodium Level 141 Potassium Level 4.6 Chloride Level 103 Carbon Dioxide Level 32 H Anion Gap 6 Blood Urea Nitrogen 60 H Creatinine 1.60 H Est Glomerular Filtrat Rate mL/min 32 L Glucose Level 96 Calcium Level 9.8 Phosphorus Level 5.5 H Magnesium Level 2.2 Medications Current Medications IV Flush (NS 3 ml) 3 ml PER PROTOCOL IV ; Start 03/23/19 at 23:00 Ondansetron HCl (Zofran Inj) 4 mg Q6H PRN IV NAUSEA/VOMITING; Start 03/23/19 at 23:00 Acetaminophen (Tylenol Tab) 650 mg Q6H PRN PO .PAIN 1-3 OR TEMP; Start 03/23/19 at 23:00 Morphine Sulfate (morphine) 2 mg Q4H PRN IV .PAIN 7-10 Last administered on 03/26/19at 05:48; Admin Dose 2 MG; Start 03/23/19 at 23:00 Docusate Sodium (Colace) 100 mg Q12H PRN PO .CONSTIPATION Last administered on 03/25/19 17:03; Admin Dose 100 MG; Start 03/23/19 at 23:00 Bisacodyl (Dulcolax) 5 mg DAILY PRN PO .CONSTIPATION Last administered on 03/25/19 20:53; Admin Dose 5 MG; Start 03/23/19 at 23:00 Hydralazine HCl (Apresoline) 10 mg Q4H PRN IV ELEVATED BLOOD PRESSURE; Start 03/24/19 at 09:00 Albuterol (Proventil 0.083% (Neb)) 2.5 mg Q4H RESP THERAPY PRN HHN SHORTNESS OF BREATH; Start 03/24/19 at 09:00 Aspirin (Halfprin) 81 mg DAILY PO Last administered on 03/26/19 08:31; Admin Dose 81 MG; Start 03/24/19 at 20:00 Furosemide (Lasix) 20 mg DAILY PO Last administered on 03/26/19 08:31; Admin Dose 20 MG; Start 03/26/19 at 09:00 Heparin Sodium (Porcine) (Heparin (5000 Units/1ml)) 5,000 unit BID SC Last administered on 03/26/19 08:33; Admin Dose 5,000 UNIT; Start 03/25/19 at 11:00 Atorvastatin Calcium (Lipitor) 20 mg HS PO Last administered on 03/25/19at 20:39; Admin Dose 20 MG; Start 03/25/19 at 21:00 Acetaminophen/ Hydrocodone Bitart ([place] (5/325)) 1 tab Q6H PRN PO MODERATE PAIN LEVEL 4-6 Last administered on 03/25/19at 23:38; Admin Dose 1 TAB; Start 03/25/19 at 11:00 Assessment/Plan Hospital Course (Demo Recall) 1. Chest pain appears to be reproducible and musculoskeletal in nature. Currently has resolved 2. History of CVA 3. Acute renal insufficiency 4. Hypertension 5. Rule out dyslipidemia 6. Small pericardial effusion 7. Aortic insufficiency Recommendation: Follow-up with renal recommendation Continue with aspirin given her history of CVA. Continue lipitor to keep LDL < 70 Continue blood pressure control Troponin have been negative. Pain management as per internal medicine Thank you for this referral. We will continue to follow along with you YANELIS BURTON MD [facility] YANELIS BURTON MD March 26, 2019 08:38
--- NOTE | 2019-03-26 09:16 | PN ---
DATE: 03/26/2019 SUBJECTIVE: The patient is stable, no events overnight. OBJECTIVE: VITAL SIGNS: Blood pressure is 149/77, respirations 17, pulse 93, temperature 97.8. HEENT: Head is normocephalic. NECK: Supple. HEART: Regular rate. LUNGS: Show diminished breath sounds at the base. ABDOMEN: Soft, nontender to palpation without rebound or guarding. EXTREMITIES: Negative for clubbing, cyanosis, no edema. DERMATOLOGIC: No rashes. MUSCULOSKELETAL: No joint effusion. NEUROLOGIC: No change in exam. MEDICATIONS: Reviewed. LABORATORY DATA: Reviewed. ASSESSMENT AND PLAN: 1. Nonoliguric acute kidney injury on top of chronic kidney disease with history of left nephrectomy . Etiology of acute kidney injury is secondary to hemodynamics, baseline creatinine unknown. The marquita wolf's renal function stabilized in last 24 hours. Continue current treatment plan, supportive care , and renally dose all medications. 2. Chronic kidney disease with history of left nephrectomy. The patient has unknown baseline creati nine. The patient is currently in acute kidney injury as stated above. Continue current treatment p hakeem. Continue disease factor modification. 3. Anemia. Continue to monitor hemoglobin and hematocrit levels. 4. Mineral bone disorder, monitor calcium and phosphorus levels. 5. Volume overload, improving. Continue to monitor renal function on low dose diuretic therapy. 6. Hypertension. Continue current blood pressure regimen. Defer any NIK inhibitor or ARB at this t loc. 7. History of cerebrovascular accident. Continue current treatment plan. 8. History of chronic obstructive pulmonary disease. 9. Gastrointestinal and deep vein thrombosis prophylaxis. Dictated By: BLAIR OVIEDO DO NR/NTS Conf#: [id number] DID#: [id number] CC: LAUREL HERRERA MD; YANELIS BURTON MD; EDWARD SCHNEIDER MD;*EndCC*
--- NOTE | 2019-03-26 11:25 | PN ---
Date/Time of Note Date/Time of Note DATE: 03/26/19 TIME: 11:23 Assessment/Plan VTE Prophylaxis Risk score (from Ns)>0 risk: 6 SCD applied (from Nsg): Yes Pharmacological prophylaxis: heparin Lines/Catheters IV Catheter Type (from Nrsg): Saline Lock Urinary Cath still in place: No Assessment/Plan Hospital Course SUBJECTIVE: no new complaints, wants to be discharged OBJECTIVE: HEENT: NC/ AT. L eye ptosis, facial droop Neck: supple CVS: S1, S2, RRR. no murmurs. pain on chest wall palpation Lungs: diminished Abd: soft, obese, nontender, +BS Ext: left sided weakness ASSESSMENT / PLAN: 64 yo F sent for SNF for evaluation of CP managed as follows : Chest pain: - likely LORETA, ACS ruled out / supportive care and pain control CHF exacerbation: -Acute / new diagnosis / diastolic with preserved EF 65% -echo also shows Mild to Moderate mitral and aortic valve regurgitation / trivial pericardial effusion / Normal LV function Bilateral Pneumonia -?aspiration / ST eval / empiric abx / blood cultures still pending UTI: -still awaiting urine cultures -empiric abx acute versus acute on chronic kidney injury + hx of L Nephrectomy: -Nephro review and recs noted, appreciate input -Cr improved today / diuretics have been de-escalated Hypertension: -good control at current time, adjust meds and titrate as indicated 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 -asa / statin Dyslipidemia -statin COPD:Patient has a history of this condition. No acute issues so far on this admission. Dispo: -possible d/c back today if cleared Result Diagram: 03/25/19 0508 03/26/19 0535 Results 24hrs Laboratory Tests Test 03/26/19 05:35 Sodium Level 141 Potassium Level 4.6 Chloride Level 103 Carbon Dioxide Level 32 H Anion Gap 6 Blood Urea Nitrogen 60 H Creatinine 1.60 H Est Glomerular Filtrat Rate mL/min 32 L Glucose Level 96 Calcium Level 9.8 Phosphorus Level 5.5 H Magnesium Level 2.2 Exam/Review of Systems Exam Vitals Vital Signs Date Temp Pulse Resp B/P (MAP) Pulse Ox O2 O2 Flow FiO2 Time Delivery Rate 03/26/19 98.8 98 16 161/87 97 10:54 (111) 03/26/19 Nasal 2.0 03:39 Cannula Intake and Output 03/25/19 03/25/19 03/26/19 1515:00 23:00 07:00 IntakeIntake Total 500 ml 600 ml BalanceBalance 500 ml 600 ml Results Results 24hrs Laboratory Tests Test 03/26/19 05:35 Sodium Level 141 Potassium Level 4.6 Chloride Level 103 Carbon Dioxide Level 32 H Anion Gap 6 Blood Urea Nitrogen 60 H Creatinine 1.60 H Est Glomerular Filtrat Rate mL/min 32 L Glucose Level 96 Calcium Level 9.8 Phosphorus Level 5.5 H Magnesium Level 2.2 Medications Medication Current Medications IV Flush (NS 3 ml) 3 ml PER PROTOCOL IV ; Start 03/23/19 at 23:00 Ondansetron HCl (Zofran Inj) 4 mg Q6H PRN IV NAUSEA/VOMITING; Start 03/23/19 at 23:00 Acetaminophen (Tylenol Tab) 650 mg Q6H PRN PO .PAIN 1-3 OR TEMP; Start 03/23/19 at 23:00 Morphine Sulfate (morphine) 2 mg Q4H PRN IV .PAIN 7-10 Last administered on 03/26/19at 10:23; Admin Dose 2 MG; Start 03/23/19 at 23:00 Docusate Sodium (Colace) 100 mg Q12H PRN PO .CONSTIPATION Last administered on 03/25/19at 17:03; Admin Dose 100 MG; Start 03/23/19 at 23:00 Bisacodyl (Dulcolax) 5 mg DAILY PRN PO .CONSTIPATION Last administered on 03/25/19at 20:53; Admin Dose 5 MG; Start 03/23/19 at 23:00 Hydralazine HCl (Apresoline) 10 mg Q4H PRN IV ELEVATED BLOOD PRESSURE; Start 03/24/19 at 09:00 Albuterol (Proventil 0.083% (Neb)) 2.5 mg Q4H RESP THERAPY PRN HHN SHORTNESS OF BREATH; Start 03/24/19 at 09:00 Aspirin (Halfprin) 81 mg DAILY PO Last administered on 03/26/19at 08:31; Admin Dose 81 MG; Start 03/24/19 at 20:00 Furosemide (Lasix) 20 mg DAILY PO Last administered on 03/26/19at 08:31; Admin Dose 20 MG; Start 03/26/19 at 09:00 Heparin Sodium (Porcine) (Heparin (5000 Units/1ml)) 5,000 unit BID SC Last administered on 03/26/19at 08:33; Admin Dose 5,000 UNIT; Start 03/25/19 at 11:00 Atorvastatin Calcium (Lipitor) 20 mg HS PO Last administered on 03/25/19at 20:39; Admin Dose 20 MG; Start 03/25/19 at 21:00 Acetaminophen/ Hydrocodone Bitart ([place] (5/325)) 1 tab Q6H PRN PO MODERATE PAIN LEVEL 4-6 Last administered on 03/25/19at 23:38; Admin Dose 1 TAB; Start 03/25/19 at 11:00 EDWARD SCHNEIDER March 26, 2019 11:25
[2019-03-26] MEDS: SEVELAMER CARBONATE 800 MG TABLET PO SCH ×2 (12:05→17:43)
--- NOTE | 2019-03-26 13:49 | DS ---
Date/Time of Note Date/Time of Note DATE: 03/26/19 TIME: 13:48 Discharge Summary Admission/Discharge Info Admit Date/Time March 25, 2019 at 08:00 Discharge Date/Time Discharge Diagnosis 64 yo F sent for SNF for evaluation of CP managed as follows : Chest pain: - likely LORETA, ACS ruled out / supportive care and pain control CHF exacerbation: -Acute / new diagnosis / diastolic with preserved EF 65% -echo also shows Mild to Moderate mitral and aortic valve regurgitation / trivial pericardial effusion / Normal LV function Bilateral Pneumonia UTI: acute on chronic kidney injury + hx of L Nephrectomy: Hypertension: 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 Dyslipidemia COPD:Patient has a history of this condition. No acute issues so far on this admission. Hyperphosphatemia . Consults Cardiology: Wiley Givens MD Nephrology: Jamie Marshall MD . Hospital Course Pleasant 64-year-old female, who was sent to us from the care home facility with complaints of chest pain on the left side. She was also found to be short of breath. She was managed for the diagnosis as above. Patient had pulmonary congestion with aortic valve regurgitation as well as mitral valve regurgitation and stage I diastolic dysfunction. She was treated with diuresis therapy. She was also given antibiotics as chest x-ray was suggestive of bilateral infiltrates, urinalysis was also strongly suggestive of a UTI. The patient has had a CVA in the past with residual left-sided hemiparesis and is bedbound from that. She has done well, and at this time has been cleared to go back to care home facility. One set of blood cultures are available and negative, but urine culture is still pending. Patient will be discharged on empiric antibiotics and will follow up on cultures and notified care home facility if any changes need to be made. Patient is requesting to be discharged today. . Primary Care Provider Not On Staff Doctor Time spent on discharge: > 30 minutes Pending Labs Laboratory Tests Test 03/26/19 05:35 Sodium Level 141 mmol/L (135-144) Potassium Level 4.6 mmol/L (3.5-5.1) Chloride Level 103 mmol/L (97-110) Carbon Dioxide Level 32 mmol/L (21-31) Anion Gap 6 (5-13) Blood Urea Nitrogen 60 mg/dl (7-20) Creatinine 1.60 mg/dl (0.44-1.00) Est Glomerular Filtrat Rate mL/min 32 mL/min (>60) Glucose Level 96 mg/dl (70-220) Calcium Level 9.8 mg/dl (8.4-10.2) Phosphorus Level 5.5 mg/dl (2.5-4.9) Magnesium Level 2.2 mg/dl (1.7-2.5) EDWARD SCHNEIDER March 26, 2019 13:49
--- NOTE | 2019-03-26 13:49 | PDOCDIS ---
Discharge Instructions DIAGNOSIS Discharge Diagnosis 64 yo F sent for SNF for evaluation of CP managed as follows : Chest pain: - likely LORETA, ACS ruled out / supportive care and pain control CHF exacerbation: -Acute / new diagnosis / diastolic with preserved EF 65% -echo also shows Mild to Moderate mitral and aortic valve regurgitation / trivial pericardial effusion / Normal LV function Bilateral Pneumonia -?aspiration / ST eval / empiric abx / blood cultures still pending UTI: -still awaiting urine cultures -empiric abx acute versus acute on chronic kidney injury + hx of L Nephrectomy: -Nephro review and recs noted, appreciate input -Cr improved today / diuretics have been de-escalated Hypertension: -good control at current time, adjust meds and titrate as indicated 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 -asa / statin Dyslipidemia -statin COPD:Patient has a history of this condition. No acute issues so far on this admission. CONDITION [id number] Patient Condition: Aefhn1s Stable ACTIVITY: [id number] Activity Restrictions [id number] Continue c PT POC; bed Comment: mobility and seated balance exercise FOLLOW UP/APPOINTMENTS Follow-up Plan Recommend repeat chest x-ray and urine culture upon completion of antibiotics. EDWARD SCHNEIDER March 26, 2019 13:49
[2019-03-26] MEDS ORDERED: LAS20 PO (13:58)
[2019-03-26] MEDS ORDERED: ALBU2.5V3 HHN (13:58)
[2019-03-26] MEDS ORDERED: ATOR20TA65 PO (13:58)
[2019-03-26] MEDS ORDERED: LISI10TA2 PO (13:58)
[2019-03-26] MEDS ORDERED: HEPA50002 SC (13:58)
[2019-03-26] MEDS ORDERED: ASPI-1044 PO (13:58)
[2019-03-26] MEDS ORDERED: METO25TA4 PO (13:58)
[2019-03-26] MEDS ORDERED: SEVE800T23 PO (13:58)
[2019-03-26] MEDS: METOPROLOL 25 MG TAB PO SCH ×2 (14:42→21:28)
[2019-03-26] MEDS: ATORVASTATIN 20 MG TAB PO SCH (21:28)
[2019-03-27 04:54] VITALS: BP 149/70; PULSE 91; RESP 20
[2019-03-27] MEDS: ONDANSETRON 4 MG INJ IV PRN (06:42)
[2019-03-27 07:20] VITALS: BP 170/81; PULSE 86; RESP 20
--- NOTE | 2019-03-27 08:38 | CONS ---
Consult Date/Type/Reason Admit Date/Time March 25, 2019 at 08:00 Initial Consult Date 03/24/19 Type of Consultation: cv Requesting Provider: LAUREL HERRERA Date/Time of Note DATE: 03/27/19 TIME: 08:33 Subjective Interventional cardiology follow-up progress note Subjective: Discussed with the staff and telemetry was reviewed. Patient has remained in sinus rhythm. Patient with no more chest pain or pressure now. She wants to go home now No palpitations Ejective: General: Obese female in no acute distress HEENT: NC/AT. Left eye ptosis NECK: no stridor. CV: RRR. systolic and diastolic murmur; no gallop or rubs. PULM: no wheezing or rhonchi. Chest: No more chest wall tenderness GI: SOFT, NT, ND, no rebound or guarding Extremity: trace B/L LE edema. no clubbing. neuro: awake and alert, oriented. Left-sided weakness Psych: calm and pleasant rectal: deferred : normal EKG shows sinus rhythm with early repolarization abnormalities Echocardiogram shows: Normal left ventricular systolic function. Normal left ventricular cavity size. Moderate concentric left ventricular hypertrophy. Ejection fraction is visually estimated at 65 %. Tissue Doppler/Mitral Doppler indices are consistent with impaired relaxation (Stage I diastolic dysfunction). The left atrium is normal in size. Mild mitral leaflet calcification. Mild mitral annular calcification. Mild to moderate mitral valve regurgitation. The regurgitation jet is eccentrically directed which may underestimate the severity of mitral regurgitation. No hemodynamically significant aortic stenosis by doppler. Aortic cusps appear mildly calcified. Mild to moderate aortic valve regurgitation. Normal appearance of the tricuspid valve. Estimated peak PA systolic pressure 40 mmHg. There is mild tricuspid regurgitation. Trivial to small pericardial effusion. Left pleural effusion seen. Objective Vitals Vital Signs Date Temp Pulse Resp B/P (MAP) Pulse Ox O2 O2 Flow FiO2 Time Delivery Rate 03/27/19 97.5 86 20 170/81 94 Room Air 07:20 (110) 03/27/19 2.0 04:44 Intake and Output 03/26/19 03/26/19 03/27/19 1515:00 23:00 07:00 IntakeIntake Total 360 ml 400 ml 500 ml BalanceBalance 360 ml 400 ml 500 ml Results/Medications Result Diagram: 03/25/19 0508 03/27/19 0548 Results 24 hrs Laboratory Tests Test 03/27/19 05:48 Sodium Level 139 Potassium Level 5.0 Chloride Level 102 Carbon Dioxide Level 28 Anion Gap 9 Blood Urea Nitrogen 54 H Creatinine 1.47 H Est Glomerular Filtrat Rate mL/min 36 L Glucose Level 104 Calcium Level 10.1 Phosphorus Level 3.5 # Magnesium Level 1.9 Home Meds Active Scripts Lisinopril* (Lisinopril*) 10 Mg Tablet, 10 MG PO DAILY, #30 TAB Prov:WYATTISABELAJEISON 03/26/19 Metoprolol Tartrate* (Lopressor*) 25 Mg Tablet, 25 MG PO BID, #60 TAB Prov:[facility]ABELA [facility] 03/26/19 Sevelamer Carbonate (Sevelamer Carbonate) 800 Mg Tablet, 800 MG PO WITH MEALS for 30 Days, TAB Prov:ISABELA SCHNEIDERNOV[facility] CENTERDivya 03/26/19 Furosemide (Lasix) 20 Mg Tab, 20 MG PO DAILY for 30 Days, TAB Prov[facility] 03/26/19 Aspirin Delayed Release (Aspirin Delayed Release) 81 Mg Tablet.dr, 81 MG PO DAILY for 30 Days Prov:WYATTISABELAJEISON 03/26/19 Atorvastatin Calcium (Atorvastatin Calcium) 20 Mg Tablet, 20 MG PO HS for 30 Da ys, TAB Prov:WYATTISABELANOVANT [facility] CENTERDivya 03/26/19 Heparin Sodium,Porcine (Heparin Sodium) 5,000 Unit/1 Ml Vial, 5000 UNIT SC BID for 30 Days, VIAL Prov:[facility] 03/26/19 Albuterol Sulfate* (Albuterol Sulfate* Neb) 0.083%-3 Ml Neb, 2.5 MG HHN Q4H RESP THERAPY PRN for SHORTNESS OF BREATH for 30 Days Prov:EDWARD SCHNEIDER Ghassan 03/26/19 Medications Current Medications IV Flush (NS 3 ml) 3 ml PER PROTOCOL IV ; Start 03/23/19 at 23:00 Ondansetron HCl (Zofran Inj) 4 mg Q6H PRN IV NAUSEA/VOMITING Last administered on 03/27/19at 06:42; Admin Dose 4 MG; Start 03/23/19 at 23:00 Acetaminophen (Tylenol Tab) 650 mg Q6H PRN PO .PAIN 1-3 OR TEMP; Start 03/23/19 at 23:00 Morphine Sulfate (morphine) 2 mg Q4H PRN IV .PAIN 7-10 Last administered on 03/26/19 21:29; Admin Dose 2 MG; Start 03/23/19 at 23:00 Docusate Sodium (Colace) 100 mg Q12H PRN PO .CONSTIPATION Last administered on 03/25/19 17:03; Admin Dose 100 MG; Start 03/23/19 at 23:00 Bisacodyl (Dulcolax) 5 mg DAILY PRN PO .CONSTIPATION Last administered on 03/25/19 20:53; Admin Dose 5 MG; Start 03/23/19 at 23:00 Hydralazine HCl (Apresoline) 10 mg Q4H PRN IV ELEVATED BLOOD PRESSURE Last administered on 03/27/19 04:30; Admin Dose 10 MG; Start 03/24/19 at 09:00 Albuterol (Proventil 0.083% (Neb)) 2.5 mg Q4H RESP THERAPY PRN HHN SHORTNESS OF BREATH; Start 03/24/19 at 09:00 Aspirin (Halfprin) 81 mg DAILY PO Last administered on 03/26/19 08:31; Admin Dose 81 MG; Start 03/24/19 at 20:00 Furosemide (Lasix) 20 mg DAILY PO Last administered on 03/26/19 08:31; Admin Dose 20 MG; Start 03/26/19 at 09:00 Heparin Sodium (Porcine) (Heparin (5000 Units/1ml)) 5,000 unit BID SC Last administered on 03/26/19 21:35; Admin Dose 5,000 UNIT; Start 03/25/19 at 11:00 Atorvastatin Calcium (Lipitor) 20 mg HS PO Last administered on 03/26/19 21:28; Admin Dose 20 MG; Start 03/25/19 at 21:00 Acetaminophen/ Hydrocodone Bitart ([place] (5/325)) 1 tab Q6H PRN PO MODERATE PAIN LEVEL 4-6 Last administered on 03/25/19 23:38; Admin Dose 1 TAB; Start 03/25/19 at 11:00 Sevelamer Carbonate (Renvela) 800 mg WITH MEALS PO Last administered on 03/26/19 17:43; Admin Dose 800 MG; Start 03/26/19 at 12:00 Metoprolol Tartrate (Lopressor) 25 mg BID PO Last administered on 03/26/19at 21:28; Admin Dose 25 MG; Start 03/26/19 at 14:00 Assessment/Plan Hospital Course (Demo Recall) 1. Chest pain appears to be reproducible and musculoskeletal in nature. Currently has resolved 2. History of CVA 3. Acute renal insufficiency 4. Hypertension 5. Rule out dyslipidemia 6. Small pericardial effusion 7. Aortic insufficiency Recommendation: Follow-up with renal recommendation Continue with aspirin given her history of CVA. Continue lipitor to keep LDL < 70 Continue blood pressure control Troponin have been negative. Pain management as per internal medicine change metoprolol to coreg for better BP control Thank you for this referral. We will continue to follow along with you YANELIS BURTON MD [facility] YANELIS BURTON MD March 27, 2019 08:38
--- NOTE | 2019-03-27 09:02 | PN ---
DATE: 03/27/2019 SUBJECTIVE: The patient is stable. No events overnight. The patient is noted to be hypertensive ov ernight. No fevers, chills, nausea or vomiting. OBJECTIVE: VITAL SIGNS: Blood pressure is 170/81, pulse 86, respirations 20, temperature 97.5. HEENT: Head is normocephalic. NECK: Supple. HEART: Regular rate. LUNGS: Show diminished breath sounds at the base. ABDOMEN: Soft, nontender to palpation without rebound or guarding. EXTREMITIES: Negative for clubbing, cyanosis. Trace edema. DERMATOLOGIC: No rashes. MUSCULOSKELETAL: No joint effusion. NEUROLOGIC: No change in exam. MEDICATIONS: Reviewed. LABORATORY DATA: Reviewed. ASSESSMENT AND PLAN: 1. Nonoliguric acute kidney injury on top of chronic kidney disease with history of left nephrectomy . Etiology of acute kidney injury is secondary to hemodynamics. The patient's creatinine has improv ed. Continue current treatment plan, supportive care, renally dose all medications. 2. Chronic kidney disease with history of left nephrectomy. The patient has an unknown baseline ser um creatinine. The patient is currently in acute kidney injury as stated above. Continue current tr eatment plan. Continue disease factor modification. 3. Anemia. Continue to monitor hemoglobin and hematocrit levels. 4. Mineral bone disorder, monitor calcium and phosphorus levels. 5. Volume overload, improving. Continue to monitor renal function. Continue low-dose diuretic ther apy. 6. Hypertension. Continue current blood pressure regimen. Defer any NIK inhibitor or ARB at this t loc. 7. History of cerebrovascular accident. Continue medical management. 8. History of chronic obstructive pulmonary disease. 9. Gastrointestinal and deep vein thrombosis prophylaxis. Dictated By: BLAIR OVIEDO DO NR/NTS Conf#: [id number] DID#: [id number] CC: YANELIS BURTON MD; EDWARD SCHNEIDER MD; LAUREL HERRERA MD;*End*
[2019-03-27] MEDS: DOCUSATE SODIUM 100 MG CAP PO PRN (09:36)
[2019-03-27] MEDS: SEVELAMER CARBONATE 800 MG TABLET PO SCH ×3 (09:36→17:15)
[2019-03-27] MEDS: ASPIRIN (EC) 81 MG TAB PO SCH (09:36)
[2019-03-27] MEDS: HYDROCODONE/APAP (5/325) TAB PO PRN ×2 (09:37→17:16)
[2019-03-27] MEDS: FUROSEMIDE 20 MG TAB PO SCH (09:37)
[2019-03-27] MEDS: HEPARIN 5,000 UNIT/1 ML VIAL SC SCH ×2 (09:48→21:15)
[2019-03-27 10:22] VITALS: BP 105/71
[2019-03-27] MEDS ORDERED: CARV6.2579 PO (10:56)
[2019-03-27] MEDS ORDERED: LEVO500T48 PO (10:56)
[2019-03-27] MEDS ORDERED: LACT1CAP28 PO (10:56)
--- NOTE | 2019-03-27 11:02 | PN ---
Date/Time of Note Date/Time of Note DATE: 03/27/19 TIME: 10:57 Assessment/Plan VTE Prophylaxis Risk score (from Ns)>0 risk: 3 SCD applied (from Ns): Yes Pharmacological prophylaxis: heparin Lines/Catheters IV Catheter Type (from Nrs): Saline Lock Urinary Cath still in place: No Assessment/Plan Hospital Course Pleasant 64-year-old female, who was sent to us from the snf facility with complaints of chest pain on the left side. She was also found to be short of breath. She was managed for the diagnosis as above. Patient had pulmonary congestion with aortic valve regurgitation as well as mitral valve regurgitation and stage I diastolic dysfunction. She was treated with diuresis therapy. She was also given antibiotics as chest x-ray was suggestive of bilateral infiltrates, urinalysis was also strongly suggestive of a UTI. The patient has had a CVA in the past with residual left-sided hemiparesis and is bedbound from that. She has done well, and at this time has been cleared to go back to snf facility. One set of blood cultures are available and negative, but urine culture is still pending. Patient will be discharged on em piric antibiotics and will follow up on cultures and notified snf facility if any changes need to be made. Patient is requesting to be discharged today. . Unfortunately, after patient was discharged, we found out that we do not know the [facility] facility from which she came from, and as such there was no way to discharge her to. Case management is working on contacting patient's family to try and get that information. In the interim we will begin to source for needle placement options. Hence discharge is on hold until placement is found. Subjective: No new issues, patient wanting to find out when she will be discharged Objective: HEENT: NC/ AT. L eye ptosis, facial droop Neck: supple CVS: S1, S2, RRR. no murmurs. pain on chest wall palpation Lungs: diminished Abd: soft, obese, nontender, +BS Ext: left sided weakness Assessment and plan: 64 yo F sent for SNF for evaluation of CP managed as follows : Chest pain: - likely LORETA, ACS ruled out / supportive care and pain control CHF exacerbation: -Acute / new diagnosis / diastolic with preserved EF 65% -echo also shows Mild to Moderate mitral and aortic valve regurgitation / trivial pericardial effusion / Normal LV function Bilateral Pneumonia UTI: acute on chronic kidney injury + hx of L Nephrectomy: Hypertension: 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 Dyslipidemia COPD:Patient has a history of this condition. No acute issues so far on this admission. Hyperphosphatemia Dispo: abx, diuresis supportive care PT Remains cleared for discharge once placement is found. Result Diagram: 03/25/19 0508 03/27/19 0548 Results 24hrs Laboratory Tests Test 03/27/19 05:48 Sodium Level 139 Potassium Level 5.0 Chloride Level 102 Carbon Dioxide Level 28 Anion Gap 9 Blood Urea Nitrogen 54 H Creatinine 1.47 H Est Glomerular Filtrat Rate mL/min 36 L Glucose Level 104 Calcium Level 10.1 Phosphorus Level 3.5 # Magnesium Level 1.9 Exam/Review of Systems Exam Vitals Vital Signs Date Temp Pulse Resp B/P (MAP) Pulse Ox O2 O2 Flow FiO2 Time Delivery Rate 03/27/19 105/71 Room Air 10:22 (82) 03/27/19 2.0 10:22 03/27/19 97.5 86 20 94 07:20 Intake and Output 03/26/19 03/26/19 03/27/19 1515:00 23:00 07:00 IntakeIntake Total 360 ml 400 ml 500 ml BalanceBalance 360 ml 400 ml 500 ml Results Results 24hrs Laboratory Tests Test 03/27/19 05:48 Sodium Level 139 Potassium Level 5.0 Chloride Level 102 Carbon Dioxide Level 28 Anion Gap 9 Blood Urea Nitrogen 54 H Creatinine 1.47 H Est Glomerular Filtrat Rate mL/min 36 L Glucose Level 104 Calcium Level 10.1 Phosphorus Level 3.5 # Magnesium Level 1.9 Medications Medication Current Medications IV Flush (NS 3 ml) 3 ml PER PROTOCOL IV ; Start 03/23/19 at 23:00 Ondansetron HCl (Zofran Inj) 4 mg Q6H PRN IV NAUSEA/VOMITING Last administered on 03/27/19at 06:42; Admin Dose 4 MG; Start 03/23/19 at 23:00 Acetaminophen (Tylenol Tab) 650 mg Q6H PRN PO .PAIN 1-3 OR TEMP; Start 03/23/19 at 23:00 Docusate Sodium (Colace) 100 mg Q12H PRN PO .CONSTIPATION Last administered on 03/27/19at 09:36; Admin Dose 100 MG; Start 03/23/19 at 23:00 Bisacodyl (Dulcolax) 5 mg DAILY PRN PO .CONSTIPATION Last administered on 03/25/19 20:53; Admin Dose 5 MG; Start 03/23/19 at 23:00 Hydralazine HCl (Apresoline) 10 mg Q4H PRN IV ELEVATED BLOOD PRESSURE Last administered on 03/27/19 04:30; Admin Dose 10 MG; Start 03/24/19 at 09:00 Albuterol (Proventil 0.083% (Neb)) 2.5 mg Q4H RESP THERAPY PRN HHN SHORTNESS OF BREATH; Start 03/24/19 at 09:00 Aspirin (Halfprin) 81 mg DAILY PO Last administered on 03/27/19 09:36; Admin Dose 81 MG; Start 03/24/19 at 20:00 Furosemide (Lasix) 20 mg DAILY PO Last administered on 03/27/19 09:37; Admin Dose 20 MG; Start 03/26/19 at 09:00 Heparin Sodium (Porcine) (Heparin (5000 Units/1ml)) 5,000 unit BID SC Last administered on 03/27/19 09:48; Admin Dose 5,000 UNIT; Start 03/25/19 at 11:00 Atorvastatin Calcium (Lipitor) 20 mg HS PO Last administered on 03/26/19 21:28; Admin Dose 20 MG; Start 03/25/19 at 21:00 Acetaminophen/ Hydrocodone Bitart ([place] (5/325)) 1 tab Q6H PRN PO MODERATE PAIN LEVEL 4-6 Last administered on 03/27/19 09:37; Admin Dose 1 TAB; Start 03/25/19 at 11:00 Sevelamer Carbonate (Renvela) 800 mg WITH MEALS PO Last administered on 03/27/19 09:36; Admin Dose 800 MG; Start 03/26/19 at 12:00 Carvedilol (Coreg) 6.25 mg BID PO Last administered on 03/27/19 09:43; Admin Dose 6.25 MG; Start 03/27/19 at 09:00 Morphine Sulfate (morphine) 2 mg Q8H PRN IV .PAIN 7-10; Start 03/27/19 at 15:00 Levofloxacin (Levaquin) 500 mg DAILY@06 PO ; Start 03/28/19 at 06:00; Stop 04/02/19 at 05:59; Status UNV Lactobacillus Acidophilus/ Rhamnosus (Culturelle) 1 cap BID PO ; Start 03/27/19 at 11:00; Stop 04/01/19 at 10:59 EDWARD SCHNEIDER March 27, 2019 11:02
[2019-03-27] MEDS ORDERED: morphine 2 MG INJ ONE (11:12)
[2019-03-27 11:47] VITALS: BP 149/70; PULSE 85; RESP 19
[2019-03-27] MEDS: LACTOBACILLUS RHAMNOSUS CAP PO SCH ×2 (11:57→21:12)
[2019-03-27] MEDS: BISACODYL (EC) 5 MG TAB PO PRN (11:57)
[2019-03-27] MEDS: LEVOFLOXACIN 500 MG TAB PO SCH (11:57)
[2019-03-27] MEDS ORDERED: morphine 2 MG INJ IV PRN (15:00)
[2019-03-27 20:13] VITALS: BP 151/77; PULSE 88; RESP 24
[2019-03-27] MEDS: ATORVASTATIN 20 MG TAB PO SCH (21:11)
[2019-03-27 23:42] VITALS: BP 121/64; PULSE 80; RESP 22
[2019-03-28 03:32] VITALS: BP 131/69; PULSE 83; RESP 21
[2019-03-28] MEDS: LEVOFLOXACIN 500 MG TAB PO SCH (05:11)
[2019-03-28 08:00] VITALS: BP 144/63; PULSE 83; RESP 20
[2019-03-28] MEDS: DOCUSATE SODIUM 100 MG CAP PO PRN (09:04)
[2019-03-28] MEDS: HYDROCODONE/APAP (5/325) TAB PO PRN ×2 (09:04→16:54)
[2019-03-28] MEDS: ASPIRIN (EC) 81 MG TAB PO SCH (09:04)
[2019-03-28] MEDS: BISACODYL (EC) 5 MG TAB PO PRN (09:04)
[2019-03-28] MEDS: ONDANSETRON 4 MG INJ IV PRN (09:04)
[2019-03-28] MEDS: SEVELAMER CARBONATE 800 MG TABLET PO SCH ×3 (09:04→17:55)
[2019-03-28] MEDS: LACTOBACILLUS RHAMNOSUS CAP PO SCH (09:04)
[2019-03-28] MEDS: FUROSEMIDE 20 MG TAB PO SCH (09:05)
--- NOTE | 2019-03-28 09:07 | PN ---
DATE: 03/28/2019 SUBJECTIVE: The patient is stable, no events overnight. OBJECTIVE: VITAL SIGNS: Blood pressure is 144/63, pulse 83, respirations 20, temperature 98.3. HEENT: Head is normocephalic. NECK: Supple. HEART: Regular rate. LUNGS: Show diminished breath sounds at base. ABDOMEN: Soft, nontender to palpation without rebound or guarding. EXTREMITIES: Negative for clubbing, cyanosis, no edema. DERMATOLOGIC: No rashes. MUSCULOSKELETAL: No joint effusion. NEUROLOGIC: No change in exam. MEDICATIONS: Have been reviewed. LABORATORY DATA: Has been reviewed. ASSESSMENT AND PLAN: 1. Nonoliguric acute kidney injury on top of chronic kidney disease with history of left nephrectomy . Etiology of acute kidney injury is secondary to hemodynamics. Patient's renal function appears to be stabilizing around a creatinine of 1.4 to 1.7 mg/dL. Will continue to monitor. 2. Chronic kidney disease with history of left nephrectomy. The patient has unknown baseline creati nine. The patient is currently in acute kidney injury as stated above. Renal function appears to be stabilizing. Continue disease factor modification. 3. Anemia. Monitor hemoglobin and hematocrit levels. 4. Mineral bone disorder, monitor calcium and phosphorus levels. 5. Volume overload, improved. Continue to monitor. 6. Hypertension. Continue current blood pressure regimen. Defer any NIK inhibitor or ARB at this t loc. 7. History of cerebrovascular accident. Continue medical management. 8. History of chronic obstructive pulmonary disease. 9. Gastrointestinal and deep vein thrombosis prophylaxis. Dictated By: BLAIR SHARP/FABIAN Conf#: [id number] DID#: [id number] CC: LAUREL HERRERA MD;*EndCC*
[2019-03-28] MEDS: HEPARIN 5,000 UNIT/1 ML VIAL SC SCH (09:35)
--- NOTE | 2019-03-28 10:33 | PN ---
Date/Time of Note Date/Time of Note DATE: 03/28/19 TIME: 10:29 Assessment/Plan VTE Prophylaxis Risk score (from Nsg)>0 risk: 3 SCD applied (from Nsg): Yes Pharmacological prophylaxis: heparin Lines/Catheters IV Catheter Type (from Nrs): Saline Lock Urinary Cath still in place: No Assessment/Plan Hospital Course Pleasant 64-year-old female, who was sent to us from the senior living facility with complaints of chest pain on the left side. She was also found to be short of breath. She was managed for the diagnosis as above. Patient had pulmonary congestion with aortic valve regurgitation as well as mitral valve regurgitation and stage I diastolic dysfunction. She was treated with diuresis therapy. She was also given antibiotics as chest x-ray was suggestive of bilateral infiltrates, urinalysis was also strongly suggestive of a UTI. The patient has had a CVA in the past with residual left-sided hemiparesis and is bedbound from that. She has done well, and at this time has been cleared to go back to senior living facility. One set of blood cultures are available and negative, but urine culture is still pending. Patient will be discharged on em piric antibiotics and will follow up on cultures and notified senior living facility if any changes need to be made. Patient is requesting to be discharged today. . Unfortunately, after patient was discharged, we found out that we do not know the [facility] facility from which she came from, and as such there was no way to discharge her to. Case management is working on contacting patient's family to try and get that information. In the interim we will begin to source for needle placement options. Hence discharge is on hold until placement is found. Subjective: No new issues, Objective: HEENT: NC/ AT. L eye ptosis, facial droop Neck: supple CVS: S1, S2, RRR. no murmurs. pain on chest wall palpation Lungs: diminished Abd: soft, obese, nontender, +BS Ext: left sided weakness Assessment and plan: 64 yo F sent for SNF for evaluation of CP managed as follows : -Chest pain: - likely LORETA, ACS ruled out / supportive care and pain control -CHF exacerbation: -Acute / new diagnosis / diastolic with preserved EF 65% -echo also shows Mild to Moderate mitral and aortic valve regurgitation / trivial pericardial effusion / Normal LV function -Bilateral Pneumonia -UTI: -acute on chronic kidney injury + hx of L Nephrectomy: -Hypertension: -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 -Dyslipidemia -COPD:Patient has a history of this condition. No acute issues so far on this admission. -Hyperphosphatemia : on renvela Dispo: abx, diuresis supportive care PT Remains cleared for discharge once placement is found. Result Diagram: 03/25/19 0508 03/28/19 0520 Results 24hrs Laboratory Tests Test 03/28/19 05:20 Sodium Level 138 Potassium Level 4.6 Chloride Level 102 Carbon Dioxide Level 27 Anion Gap 9 Blood Urea Nitrogen 55 H Creatinine 1.77 H Est Glomerular Filtrat Rate mL/min 29 L Glucose Level 107 Calcium Level 9.4 Phosphorus Level 5.3 H Magnesium Level 2.1 Exam/Review of Systems Exam Vitals Vital Signs Date Temp Pulse Resp B/P (MAP) Pulse Ox O2 O2 Flow FiO2 Time Delivery Rate 03/28/19 Nasal 2.0 08:13 Cannula 03/28/19 98.3 83 20 144/63 93 08:00 (90) Intake and Output 03/27/19 03/27/19 03/28/19 1515:00 23:00 07:00 IntakeIntake Total 800 ml 350 ml BalanceBalance 800 ml 350 ml Results Results 24hrs Laboratory Tests Test 03/28/19 05:20 Sodium Level 138 Potassium Level 4.6 Chloride Level 102 Carbon Dioxide Level 27 Anion Gap 9 Blood Urea Nitrogen 55 H Creatinine 1.77 H Est Glomerular Filtrat Rate mL/min 29 L Glucose Level 107 Calcium Level 9.4 Phosphorus Level 5.3 H Magnesium Level 2.1 Medications Medication Current Medications IV Flush (NS 3 ml) 3 ml PER PROTOCOL IV ; Start 03/23/19 at 23:00 Ondansetron HCl (Zofran Inj) 4 mg Q6H PRN IV NAUSEA/VOMITING Last administered on 03/28/19at 09:04; Admin Dose 4 MG; Start 03/23/19 at 23:00 Acetaminophen (Tylenol Tab) 650 mg Q6H PRN PO .PAIN 1-3 OR TEMP; Start 03/23/19 at 23:00 Docusate Sodium (Colace) 100 mg Q12H PRN PO .CONSTIPATION Last administered on 03/28/19at 09:04; Admin Dose 100 MG; Start 03/23/19 at 23:00 Bisacodyl (Dulcolax) 5 mg DAILY PRN PO .CONSTIPATION Last administered on 03/28/19 09:04; Admin Dose 5 MG; Start 03/23/19 at 23:00 Hydralazine HCl (Apresoline) 10 mg Q4H PRN IV ELEVATED BLOOD PRESSURE Last administered on 03/27/19 04:30; Admin Dose 10 MG; Start 03/24/19 at 09:00 Albuterol (Proventil 0.083% (Neb)) 2.5 mg Q4H RESP THERAPY PRN HHN SHORTNESS OF BREATH; Start 03/24/19 at 09:00 Aspirin (Halfprin) 81 mg DAILY PO Last administered on 03/28/19 09:04; Admin Dose 81 MG; Start 03/24/19 at 20:00 Furosemide (Lasix) 20 mg DAILY PO Last administered on 03/28/19 09:05; Admin Dose 20 MG; Start 03/26/19 at 09:00 Heparin Sodium (Porcine) (Heparin (5000 Units/1ml)) 5,000 unit BID SC Last administered on 03/28/19 09:35; Admin Dose 5,000 UNIT; Start 03/25/19 at 11:00 Atorvastatin Calcium (Lipitor) 20 mg HS PO Last administered on 03/27/19 21:11; Admin Dose 20 MG; Start 03/25/19 at 21:00 Acetaminophen/ Hydrocodone Bitart ([place] (5/325)) 1 tab Q6H PRN PO MODERATE P AIN LEVEL 4-6 Last administered on 03/28/19 09:04; Admin Dose 1 TAB; Start 03/25/19 at 11:00 Sevelamer Carbonate (Renvela) 800 mg WITH MEALS PO Last administered on 03/28/19 09:04; Admin Dose 800 MG; Start 03/26/19 at 12:00 Carvedilol (Coreg) 6.25 mg BID PO Last administered on 03/28/19 09:04; Admin Dose 6.25 MG; Start 03/27/19 at 09:00 Morphine Sulfate (morphine) 2 mg Q8H PRN IV .PAIN 7-10 Last administered on 03/27/19 11:15; Admin Dose 2 MG; Start 03/27/19 at 15:00 Levofloxacin (Levaquin) 500 mg DAILY@06 PO Last administered on 03/28/19at 05:11; Admin Dose 500 MG; Start 03/27/19 at 11:00; Stop 03/31/19 at 06:01 Lactobacillus Acidophilus/ Rhamnosus (Culturelle) 1 cap BID PO Last ad ministered on 03/28/19at 09:04; Admin Dose 1 CAP; Start 03/27/19 at 11:00; Stop 04/01/19 at 10:59 EDWARD SCHNEIDER March 28, 2019 10:33
[2019-03-28 10:49] VITALS: BP 145/67; PULSE 83; RESP 20
[2019-03-28 14:46] VITALS: BP 161/71; PULSE 88; RESP 20
[2019-03-28 16:00] VITALS: BP 142/65; PULSE 87
--- NOTE | 2019-03-28 17:46 | CONS ---
Consult Date/Type/Reason Admit Date/Time March 25, 2019 at 08:00 Initial Consult Date 03/24/19 Type of Consultation: cv Requesting Provider: LAUREL HERRERA Date/Time of Note DATE: 03/28/19 TIME: 17:45 Subjective Interventional cardiology follow-up progress note Subjective: Discussed with the staff a Patient with no more chest pain or pressure now. No palpitations no PND orthopnea is reported Ejective: General: Obese female in no acute distress HEENT: NC/AT. Left eye ptosis NECK: no stridor. CV: RRR. systolic and diastolic murmur; no gallop or rubs. PULM: no wheezing or rhonchi. Chest: No more chest wall tenderness GI: SOFT, NT, ND, no rebound or guarding Extremity: trace B/L LE edema. no clubbing. neuro: awake and alert, oriented. Left-sided weakness Psych: calm and pleasant rectal: deferred : normal EKG shows sinus rhythm with early repolarization abnormalities Echocardiogram shows: Normal left ventricular systolic function. Normal left ventricular cavity size. Moderate concentric left ventricular hypertrophy. Ejection fraction is visually estimated at 65 %. Tissue Doppler/Mitral Doppler indices are consistent with impaired relaxation (Stage I diastolic dysfunction). The left atrium is normal in size. Mild mitral leaflet calcification. Mild mitral annular calcification. Mild to moderate mitral valve regurgitation. The regurgitation jet is eccentrically directed which may underestimate the severity of mitral regurgitation. No hemodynamically significant aortic stenosis by doppler. Aortic cusps appear mildly calcified. Mild to moderate aortic valve regurgitation. Normal appearance of the tricuspid valve. Estimated peak PA systolic pressure 40 mmHg. There is mild tricuspid regurgitation. Trivial to small pericardial effusion. Left pleural effusion seen. Objective Vitals Vital Signs Date Temp Pulse Resp B/P (MAP) Pulse Ox O2 O2 Flow FiO2 Time Delivery Rate 03/28/19 92 2.0 17:27 03/28/19 Nasal 15:58 Cannula 03/28/19 98.4 88 20 161/71 14:46 (101) Intake and Output 03/27/19 03/27/19 03/28/19 1515:00 23:00 07:00 IntakeIntake Total 800 ml 350 ml BalanceBalance 800 ml 350 ml Results/Medications Result Diagram: 03/25/19 0508 03/28/19 0520 Results 24 hrs Laboratory Tests Test 03/28/19 05:20 Sodium Level 138 Potassium Level 4.6 Chloride Level 102 Carbon Dioxide Level 27 Anion Gap 9 Blood Urea Nitrogen 55 H Creatinine 1.77 H Est Glomerular Filtrat Rate mL/min 29 L Glucose Level 107 Calcium Level 9.4 Phosphorus Level 5.3 H Magnesium Level 2.1 Home Meds Active Scripts Lactobacillus Rhamnosus GG (Culturelle) 1 Each Capsule, 1 CAP PO BID, #10 CAP till 04/01/19 Prov:WYATTISABELAJEISON 03/27/19 Levofloxacin* (Levaquin*) 500 Mg Tablet, 500 MG PO DAILY@06 for 5 Days, TAB till 04/01/19 Prov:ISABELA SCHNEIDERBET[facility]Div[facility] 03/27/19 Carvedilol* (Carvedilol*) 6.25 Mg Tablet, 6.25 MG PO BID, #60 TAB Prov:WYATTISABELAJEISON 03/27/19 Sevelamer Carbonate (Sevelamer Carbonate) 800 Mg Tablet, 800 MG PO WITH MEALS for 30 Days, TAB Prov:[facility]EL[facility]ERCAR[facility] 03/26/19 Furosemide (Lasix) 20 Mg Tab, 20 MG PO DAILY for 30 Days, TAB Prov:WYATT,ISABELACAROLINAS [facility] 03/26/19 Aspirin Delayed Release (Aspirin Delayed Release) 81 Mg Tablet.dr, 81 MG PO DAILY for 30 Days Prov:WYATTISABELAJEISON 03/26/19 Atorvastatin Calcium (Atorvastatin Calcium) 20 Mg Tablet, 20 MG PO HS for 30 Days, TAB Prov:[facility]ATTISABELACAROL[facility] 03/26/19 Heparin Sodium,Porcine (Heparin Sodium) 5,000 Unit/1 Ml Vial, 5000 UNIT SC BID for 30 Days, VIAL Prov:WYATTISABELABETSY [facility]ITALDiv[facility] 03/26/19 Albuterol Sulfate* (Albuterol Sulfate* Neb) 0.083%-3 Ml Neb, 2.5 MG HHN Q4H RESP THERAPY PRN for SHORTNESS OF BREATH for 30 Days Prov:WYATTISABELAJEISON Ghassan 03/26/19 Medications Current Medications IV Flush (NS 3 ml) 3 ml PER PROTOCOL IV ; Start 03/23/19 at 23:00 Ondansetron HCl (Zofran Inj) 4 mg Q6H PRN IV NAUSEA/VOMITING Last administered on 03/28/19at 09:04; Admin Dose 4 MG; Start 03/23/19 at 23:00 Acetaminophen (Tylenol Tab) 650 mg Q6H PRN PO .PAIN 1-3 OR TEMP; Start 03/23/19 at 23:00 Docusate Sodium (Colace) 100 mg Q12H PRN PO .CONSTIPATION Last administered on 03/28/19 09:04; Admin Dose 100 MG; Start 03/23/19 at 23:00 Bisacodyl (Dulcolax) 5 mg DAILY PRN PO .CONSTIPATION Last administered on 03/28/19 09:04; Admin Dose 5 MG; Start 03/23/19 at 23:00 Hydralazine HCl (Apresoline) 10 mg Q4H PRN IV ELEVATED BLOOD PRESSURE Last administered on 03/27/19 04:30; Admin Dose 10 MG; Start 03/24/19 at 09:00 Albuterol (Proventil 0.083% (Neb)) 2.5 mg Q4H RESP THERAPY PRN HHN SHORTNESS OF BREATH; Start 03/24/19 at 09:00 Aspirin (Halfprin) 81 mg DAILY PO Last administered on 03/28/19 09:04; Admin Dose 81 MG; Start 03/24/19 at 20:00 Furosemide (Lasix) 20 mg DAILY PO Last administered on 03/28/19 09:05; Admin Dose 20 MG; Start 03/26/19 at 09:00 Heparin Sodium (Porcine) (Heparin (5000 Units/1ml)) 5,000 unit BID SC Last administered on 03/28/19 09:35; Admin Dose 5,000 UNIT; Start 03/25/19 at 11:00 Atorvastatin Calcium (Lipitor) 20 mg HS PO Last administered on 03/27/19 21:11; Admin Dose 20 MG; Start 03/25/19 at 21:00 Acetaminophen/ Hydrocodone Bitart (Sieper (5/325)) 1 tab Q6H PRN PO MODERATE PAIN LEVEL 4-6 Last administered on 03/28/19 16:54; Admin Dose 1 TAB; Start 03/25/19 at 11:00 Sevelamer Carbonate (Renvela) 800 mg WITH MEALS PO Last administered on 03/28/19 13:00; Admin Dose 800 MG; Start 03/26/19 at 12:00 Carvedilol (Coreg) 6.25 mg BID PO Last administered on 03/28/19 09:04; Admin D ose 6.25 MG; Start 03/27/19 at 09:00 Morphine Sulfate (morphine) 2 mg Q8H PRN IV .PAIN 7-10 Last administered on 03/27/19at 11:15; Admin Dose 2 MG; Start 03/27/19 at 15:00 Levofloxacin (Levaquin) 500 mg DAILY@06 PO Last administered on 03/28/19at 05:11; Admin Dose 500 MG; Start 03/27/19 at 11:00; Stop 03/31/19 at 06:01 Lactobacillus Acidophilus/ Rhamnosus (Culturelle) 1 cap BID PO Last administer ed on 03/28/19at 09:04; Admin Dose 1 CAP; Start 03/27/19 at 11:00; Stop 04/01/19 at 10:59 Assessment/Plan Hospital Course (Demo Recall) 1. Chest pain appears to be reproducible and musculoskeletal in nature. Currently has resolved 2. History of CVA 3. Acute renal insufficiency 4. Hypertension 5. Rule out dyslipidemia 6. Small pericardial effusion 7. Aortic insufficiency Recommendation: Follow-up with renal recommendation Continue with aspirin given her history of CVA. Continue lipitor to keep LDL < 70 Continue blood pressure control Troponin have been negative. Pain management as per internal medicine cont coreg and adjust as needed for better BP control Thank you for this referral. We will continue to follow along with you NEEDED over the weekend YANELIS BURTON MD [facility] YANELIS BURTON MD March 28, 2019 17:46
--- NOTE | 2019-03-29 21:21 | EN ---
Date/Time of Note Date/Time of Note DATE: 03/29/19 TIME: 21:17 Event Note Medicine Medicine Event Note DISCHARGE SUMMARY ADDENDUM DATE OF ADMISSION : 03/23/19 DATE OF DISCHARGE: 03/28/19 FINAL DIAGNOSIS 64 yo F sent for SNF for evaluation of CP managed as follows : -Chest pain: - likely LORETA, ACS ruled out / supportive care and pain control -CHF exacerbation: -Acute / new diagnosis / diastolic with preserved EF 65% -echo also shows Mild to Moderate mitral and aortic valve regurgitation / trivial pericardial effusion / Normal LV function -Bilateral Pneumonia -UTI: -acute on chronic kidney injury + hx of L Nephrectomy: -Hypertension: -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 -Dyslipidemia -COPD:Patient has a history of this condition. No acute issues so far on this admission. -Hyperphosphatemia : on renvela -chronic debility: chronically bed bound . Consults Cardiology: Wiley Givens MD Nephrology: Jamie Marshall MD Hospital Course Pleasant 64-year-old female, who [facility] with complaints of chest pain on the left side. She was also found to be short of breath. She was managed for the diagnosis as above. Patient had pulmonary congestion with aortic valve regurgitation as well as mitral valve regurgitation and stage I diastolic dysfunction. She was treated with diuresis therapy. She was also given antibiotics as chest x-ray was suggestive of bilateral infiltrates, urinalysis was also strongly suggestive of a UTI. The patient has had a CVA in the past with residual left-sided hemiparesis and is bedbound from that. She has done well, and at this time has been cleared [facility]. She will be discharged to complete abx therapy at SNF. recommend repeat CXR and urine culture upon completion of abx. , . Primary Care Provider Not On Staff Doctor Time spent on discharge: > 30 minutes Discharge medications: please review med list Discharge condition: Stable, poor custodial prognosis EDWARD SCHNEIDER March 29, 2019 21:21
== END 2019-03-28 19:15 | DRG 291 ==
LOC: E/R 18:56 → 6WM 22:54 → OBSVTOIN 03-25 08:00
PROVIDERS: ADMIT Family Medicine; ATTEND Family Medicine
DX: I13.0 Hypertensive heart and chronic kidney disease with heart failure and stage 1 through stage 4 chronic kidney disease, or unspecified chronic kidney disease (principal); J18.9 Pneumonia, unspecified organism; I50.31 Acute diastolic (congestive) heart failure; N17.9 Acute kidney failure, unspecified; N39.0 Urinary tract infection, site not specified; I69.354 Hemiplegia and hemiparesis following cerebral infarction affecting left non-dominant side; R07.9 Chest pain, unspecified; N18.9 Chronic kidney disease, unspecified; I69.992 Facial weakness following unspecified cerebrovascular disease; E78.5 Hyperlipidemia, unspecified; J44.9 Chronic obstructive pulmonary disease, unspecified; E83.39 Other disorders of phosphorus metabolism; I34.0 Nonrheumatic mitral (valve) insufficiency; I35.1 Nonrheumatic aortic (valve) insufficiency; Z74.01 Bed confinement status
CPT/HCPCS: 36415; 36600; 71045; 76775; 80048; 80053; 80061; 81001; 81003; 82043; 82550; 82553; 82803; 83036; 83735; 83880; 84100; 84155; 84300; 84443; 84484; 85025; 93005; 93306; 97163; 97530; G0378; A4310; J0360; J0692; J1644; J1940; J2250; J2270; J2405; J3010; J7030